=== PATIENT | female | born 1945 | race Caucasian/White ===

== ENCOUNTER → 2018-08-14 | Outpatient (CLI) | payer MEDICARE | LOC: GOCC 15:35 | PROVIDERS: ATTEND Internal Medicine | DX: A04.72 Enterocolitis due to Clostridium difficile, not specified as recurrent (principal) ==

== ENCOUNTER 2018-09-02 20:10 | Emergency (ER) | payer MEDICARE ==
--- NOTE | 2018-09-02 20:49 | ED.PDOC ---
History of Present Illness - General Chief Complaint: Respiratory Problem Stated Complaint: low oxygen sats per intermediate Time Seen by Provider: 09/02/18 20:46 Source: patient Exam Limitations: no limitations - History of Present Illness Initial Comments: SHE COMES FROM THE NH WITH LOW O2 SATS. SHE HAS COPD. Timing/Duration: 1 hour Severity: mild Possible Cause: frequent episodes Improving Factors: nothing Worsening Factors: nothing Associated Symptoms: denies symptoms Respiratory Risk Factors: no cause identified Allergies/Adverse Reactions: Allergies NO KNOWN ALLERGY Allergy (Verified 09/02/18 20:35) Review of Systems - Review of Systems Constitutional: States: no symptoms reported EENTM: States: no symptoms reported Respiratory: States: short of breath Cardiology: States: no symptoms reported Gastrointestinal/Abdominal: States: no symptoms reported Genitourinary: States: no symptoms reported Musculoskeletal: States: no symptoms reported Skin: States: no symptoms reported Neurological: States: no symptoms reported Endocrine: States: no symptoms reported Hematologic/Lymphatic: States: no symptoms reported Past Medical History (General) - Patient Medical History Hx Seizures: No Hx Stroke: No Hx Dementia: No Hx Asthma: No Hx of COPD: Yes Hx Cardiac Disorders: Yes - Tachycardia Hx Congestive Heart Failure: No Hx Pacemaker: No Hx Hypertension: No Hx Thyroid Disease: No Hx Diabetes: No Hx Gastroesophageal Reflux: Yes Hx Renal Disease: No Hx of HIV: No Hx MRSA: No Surgical History: noncontributory - Activities of Daily Living [facility]/Assisted Living (if applicable):: [place] [facility] Family Medical History - Family History Mother Family History: Unknown Physical Exam - Physical Exam General Appearance: Alert, Well Developed, Well Groomed, Well Hydrated, Well Nourished Eyes, Ears, Nose, Throat Exam: PERRL/EOMI, normal ENT inspection Neck: non-tender, supple Respiratory: chest non-tender, lungs clear, no respiratory distress, no accessory muscle use Cardiovascular/Chest: normal peripheral pulses, regular rate, rhythm, no edema, no gallop, no JVD Peripheral Pulses: radial,right: 2+, radial,left: 2+ Gastrointestinal/Abdominal: normal bowel sounds, non tender, no organomegaly Extremity: normal range of motion, non-tender Neurologic: no motor/sensory deficits Progress - Progress Progress: 09/02/18 22:05 Laboratory Tests 09/02/18 09/02/18 21:09 21:09 WBC 6.4 RBC 3.60 L Hgb 11.0 L Hct 35.6 L MCV 99.0 MCH 30.5 MCHC 30.8 L RDW 15.0 H Plt Count 201 MPV 7.8 Absolute Neuts (auto) 4.80 Absolute Lymphs (auto) 0.90 L Absolute Monos (auto) 0.40 Absolute Eos (auto) 0.20 Absolute Basos (auto) 0.00 Neutrophils % 75.4 Lymphocytes % 14.0 L Monocytes % 7.0 Eosinophils % 3.1 Basophils % 0.5 Sodium 142 Potassium 4.6 Chloride 89 L Carbon Dioxide 49 H Anion Gap 8.6 L BUN 13 Creatinine < 0.40 L BUN/Creatinine Ratio 32.0 H Random Glucose 111 H Serum Osmolality 283.9 Calcium 9.8 Total Bilirubin 0.5 AST 20 ALT < 8 L Alkaline Phosphatase 83 Serum Total Protein 7.1 Albumin 4.1 Globulin 3.0 Albumin/Globulin Ratio 1.4 - Results/Orders Results/Orders: CXR IS REPORTED: COPD CHANGES THE PATIENT USES OXYGEN AND HER SATS HERE ARE 94-95% AT 2 LTS [facility] DC Departure - Departure Clinical Impression: COPD (chronic obstructive pulmonary disease) Qualifiers: COPD type: unspecified COPD Qualified Code(s): J44.9 - Chronic obstructive pulmonary disease, unspecified Time of Disposition: 22:06 Disposition: Discharge to Home or Self Care Condition: Good Departure Forms: ED Discharge - Pt. Copy, Patient Portal Self Enrollment Instructions: Chronic Obstructive Pulmonary Disease (COPD), Including Emphysema Diet: resume usual diet
--- NOTE | 2018-09-02 21:10 | RAD ---
EXAM DESCRIPTION: Chest,1 View CLINICAL HISTORY: 73 years Female, SOB Comparison: None FINDINGS: Single AP view of the chest Cardiomediastinal silhouette is within normal limits. No focal lung consolidation. Increased bronchovascular markings bilaterally, lung hyperinflation and flattening hemidiaphragms. No pleural effusion. No pneumothorax. No acute osseous finding. IMPRESSION: Lung findings suggesting underlying COPD. Electronically signed by: Patricia Maki MD 09/02/2018 9:09 PM HEALTH SERVICE COORDINATOR
[2018-09-02 21:47] VITALS: TEMP 98
[2018-09-02] MEDS ORDERED: LIDOCAINE 2 % GEL 5 ML TUBE TOP ONE (22:37)
[2018-09-02 23:59] VITALS: O2SAT 98
[2018-09-03] VITALS: BP 126/72
== END 2018-09-02 23:35 | disposition home or self-care (01) ==
LOC: ER 20:10
DX: J44.9 Chronic obstructive pulmonary disease, unspecified (principal); K21.9 Gastro-esophageal reflux disease without esophagitis

== ENCOUNTER 2018-10-10 10:36 | Inpatient (IN) | payer MEDICARE, MEDICAID ==
[2018-10-10] MEDS ORDERED: IPRATROPIUM/ALBUTEROL 3 ML VIAL NEB ONE (10:52)
[2018-10-10] MEDS ORDERED: IBUPROFEN 200 MG TAB PO ONE (10:53)
--- NOTE | 2018-10-10 11:13 | RAD ---
EXAM DESCRIPTION: Chest,1 View CLINICAL HISTORY: 73 years Female, difficulty breathing, RR in the 40's COMPARISON: September 02, 2018. FINDINGS: Cardiomediastinal silhouette appears within normal limits, considering patient rotation to the right. The lungs appear somewhat hyperinflated but free of acute disease and not significantly changed compared to the previous examination, considering slight technical differences. A small vague nodular density in the left lateral upper lung field is probably artifactual. No obvious pneumothorax identified on this upright portable film. Possible old fracture in the left lower rib cage. IMPRESSION: No radiographic evidence of acute cardiopulmonary disease. Findings consistent with COPD. Electronically signed by: Martin Lyon MD 10/10/2018 11:11 AM [facility]
[2018-10-10] MEDS ORDERED: methylPREDNISolone SODIUM SUC 125 MG/2 ML VIAL IV ONE (11:34)
[2018-10-10] MEDS ORDERED: SODIUM CHLORIDE 0.9% 1000ML 1,000 ML IVS ONE (11:35)
[2018-10-10] MEDS ORDERED: cefTRIAXone SODIUM 1 GM in SODIUM CHL 0.9% 50ML MIN-BAG+ 50 ML IVPB ONE (11:35)
[2018-10-10] MEDS ORDERED: AZITHROMYCIN IV 500 MG in SODIUM CHLORIDE 0.9% 250ML 250 ML IVPB ONE (11:35)
[2018-10-10] MEDS ORDERED: cefTRIAXone SODIUM 1 GM VIAL ONE (11:49)
[2018-10-10] MEDS ORDERED: SODIUM CHL 0.9% 50ML MIN-BAG+ 50 ML IVPB ONE (11:50)
--- NOTE | 2018-10-10 11:54 | ED.PDOC ---
History of Present Illness - General Chief Complaint: Respiratory Problem Stated Complaint: Difficulty breathing Time Seen by Provider: 10/10/18 10:39 Source: patient Exam Limitations: no limitations - History of Present Illness Initial Comments: the patient is a 73-year-old female presenting to the emergency room by EMS. The patient was brought from [facility]. The patient was brought up on her daughter's request. The daughter is a nurse. The patient has been less interactive and slightly more obtunded than normal. The patient does have long-standing Parkinson's disease and takes medications for that. Additionally she has very advanced end-stage lung disease. She does normally wear oxygen at 2-3 L. She also does normally wear BiPAP 3 or 4 hours a night. She is a chronic CO2 retainer and her CO2 levels are normally in the 60s. She has a history of multiple frequent lung infections in the past. The patient is requiring about 3-1/2 L of oxygen currently. She has tachypnea with respiratory rate in the 40s. The patient is drowsy but arousable and interactive. The patient is very thin and cachectic. [facility] the [facility]. Temperature is 100 here.the patient has recently had a viral upper respiratory tract infection. Timing/Duration: 24 hours Severity: moderate Improving Factors: nothing Worsening Factors: nothing Associated Symptoms: malaise, shortness of breath Allergies/Adverse Reactions: Allergies NO KNOWN ALLERGY Allergy (Verified 10/10/18 10:55) Home Medications: Ambulatory Orders Albuterol Inhaler [Ventolin Hfa Inhaler] 2 puff INH Q4H PRN 10/10/18 Aspirin [Aspirin Regimen Low Dose/] 81 mg PO DAILY 10/10/18 B-Complex Vitamins [Vitamin B-Complex] 1 tab PO DAILY 10/10/18 Budesonide Nebs [Pulmicort Respules] 0.25 mg INH BID 10/10/18 Carbidopa-Levodopa [Rytary 36.25-145 mg] 3 cap PO BID 10/10/18 Cholecalciferol [Vitamin D-3] 5,000 unit PO DAILY 10/10/18 Ipratropium Almira 0.02 % NEB Q4H 10/10/18 Levalbuterol HCl [Xopenex] 1.25 mg NEB Q4H 10/10/18 Meclizine HCl [Meclizine 25] 25 mg PO TID PRN 10/10/18 Megestrol Acetate 80 mg PO DAILY 10/10/18 Omeprazole Magnesium [Prilosec Otc] 20 mg PO DAILY PRN 10/10/18 Polyethylene Glycol 3350 [Miralax] 17 gm PO DAILY 10/10/18 Ropinirole Hydrochloride [Ropinirole HCl] 0.5 mg PO BID 10/10/18 Rotigotine [Neupro] 8 mg TD DAILY 10/10/18 Sertraline HCl [Zoloft] 25 mg PO .EVENING 10/10/18 Simethicone 80 mg PO QID 10/10/18 Tramadol HCl 50 mg PO Q8H PRN 10/10/18 Trihexyphenidyl HCl 2 mg PO DAILY 10/10/18 Umeclidinium-Vilanterol [Anoro Ellipta 62.5-25 Mcg/INH] 1 aer INH DAILY 10/10/18 Review of Systems - Review of Systems Constitutional: States: malaise, weakness - generalized EENTM: States: nose congestion Respiratory: States: short of breath Cardiology: States: no symptoms reported Gastrointestinal/Abdominal: States: no symptoms reported Genitourinary: States: no symptoms reported Musculoskeletal: States: no symptoms reported Skin: States: no symptoms reported Neurological: States: other - mildly obtunded Endocrine: States: no symptoms reported All other Systems: No Change from Baseline Past Medical History (General) - Patient Medical History Hx Seizures: No Hx Stroke: No Hx Dementia: No Hx Asthma: No Hx of COPD: Yes Hx Cardiac Disorders: Yes - Tachycardia Hx Congestive Heart Failure: No Hx Pacemaker: No Hx Hypertension: No Hx Thyroid Disease: No Hx Diabetes: No Hx Gastroesophageal Reflux: Yes Hx Renal Disease: No Hx of HIV: No Hx MRSA: No - Vaccination History Hx Influenza Vaccination: No Hx Pneumococcal Vaccination: No - Social History Hx Alcohol Use: No - Activities of Daily Living [facility] (if applicable):: [facility] Family Medical History - Family History Mother Family History: Unknown Living Status: Physical Exam - Physical Exam General Appearance: Emaciated, Frail, Other - drowsy Eye Exam: bilateral normal Ears, Nose, Throat: hearing grossly normal, normal pharynx Neck: non-tender, supple Respiratory: other - the patient is to get back and does have dry rales at the bases. Is likely chronic. No wheezes but poor air movement. She does have significant accessory muscle use. Cardiovascular/Chest: normal peripheral pulses, regular rate, rhythm, no edema Peripheral Pulses: radial,right: 2+, radial,left: 2+, dorsalis pedis,right: 2+, dorsalis pedis,left: 2+ Gastrointestinal/Abdominal: non tender, soft Rectal Exam: deferred Back Exam: no CVA tenderness, no vertebral tenderness Extremity: normal range of motion, non-tender, normal inspection, no pedal edema, normal capillary refill Neurologic: track grinder II-XII nml as tested, no motor/sensory deficits, other - the patient is drowsy. Skin Exam: normal color Comments: Vital Signs - 24 hr 10/10/18 10/10/18 10/10/18 10:40 11:05 11:15 Temperature 100.0 F H 100.0 F H Pulse Rate 90 90 Pulse Rate [ 98 H 94 H Right Radial] Respiratory 46 H 32 H 32 H Rate Blood Pressure 132/56 103/54 [Right Arm] O2 Sat by Pulse 65 L 84 L 90 L Oximetry Progress - Progress Progress: 10/10/18 11:56 the patient's 73-year-old female with Parkinson's and severe end-stage lung disease presented secondary to tachypnea and a mildly obtunded state. The patient is retaining significant carbon dioxide. The patient is being placed on BiPAP. She'll be treated as a COPD exacerbation otherwise. Blood culture has been obtained. She has received breathing treatments and a steroid dose. She has also received a small fluid bolus and a dose of Rocephin and azithromycin. The patient will be placed as an inpatient to make sure that she improves. she may benefit from a slightly reduced dose of her Parkinson's medications due to sedative effects in the very near future at least. - Results/Orders Results/Orders: 10/10/18 10:52 Telemetry .CONTINUOUS 10/10/18 10:57 INFLUENZA A & B BY PCR Stat 10/10/18 11:10 BLOOD CULTURE Stat 10/10/18 11:33 URINE CULTURE W/COLONY COUNT Stat 10/10/18 11:35 Azithromycin IV [Zithromax IV] 500 mg Sodium Chloride 0.9% 250Ml [NS 250ml] 250 ml IVPB ONCE Sodium Chloride 0.9% 1000ML [Ns 1000 ml] 1,000 ml IVS ONCE cefTRIAXone SODIUM [Rocephin] 1 gm Sodium Chl 0.9% 50Ml Min-Bag+ [NS 50ml MINI-BAG+] 50 ml IVPB ONCE Laboratory Results - last 24 hr 10/10/18 10/10/18 10/10/18 10:52 10:52 11:06 WBC 8.1 RBC 3.92 L Hgb 11.8 L Hct 38.3 MCV 97.5 MCH 30.1 MCHC 30.9 L RDW 13.5 Plt Count 289 MPV 7.7 Absolute Neuts (auto) 5.90 Absolute Lymphs (auto) 1.30 Absolute Monos (auto) 0.50 Absolute Eos (auto) 0.30 Absolute Basos (auto) 0.10 Neutrophils % 73.5 Lymphocytes % 16.2 L Monocytes % 5.8 Eosinophils % 3.8 Basophils % 0.7 pCO2 87 H* pO2 88 HCO3 52.9 ABG pH 7.400 ABG O2 Saturation 96.8 ABG Base Excess 23.5 ABG Deoxyhemoglobin 3.1 Oxyhemoglobin % 95.0 Carboxyhemoglobin % 0.6 Methemoglobin % Sat 1.3 Calc Total Hemoglobin 11.3 L Sodium 142 Potassium 3.9 Chloride 87 L Carbon Dioxide 51 H* Anion Gap 7.9 L BUN 12 Creatinine < 0.40 L BUN/Creatinine Ratio 30.0 H Random Glucose 145 H Serum Osmolality 285.5 Lactic Acid Calcium 9.9 Total Bilirubin 0.5 AST 22 ALT < 8 L Alkaline Phosphatase 71 Creatine Kinase 19 L CK-MB (CK-2) 1.6 CK-MB (CK-2) % Not Reportable Troponin I < 0.02 B-Natriuretic Peptide 36.7 Serum Total Protein 6.4 Albumin 3.3 Globulin 3.1 Albumin/Globulin Ratio 1.1 Urine Color Urine Appearance Urine pH Ur Specific Conley Urine Protein Urine Glucose (UA) Urine Ketones Urine Blood Urine Nitrite Urine Bilirubin Urine Urobilinogen Ur Leukocyte Esterase Urine RBC Urine WBC Ur Epithelial Cells Amorphous Sediment Urine Bacteria 10/10/18 10/10/18 11:10 11:33 WBC RBC Hgb Hct MCV MCH MCHC RDW Plt Count MPV Absolute Neuts (auto) Absolute Lymphs (auto) Absolute Monos (auto) Absolute Eos (auto) Absolute Basos (auto) Neutrophils % Lymphocytes % Monocytes % Eosinophils % Basophils % pCO2 pO2 HCO3 ABG pH ABG O2 Saturation ABG Base Excess ABG Deoxyhemoglobin Oxyhemoglobin % Carboxyhemoglobin % Methemoglobin % Sat Calc Total Hemoglobin Sodium Potassium Chloride Carbon Dioxide Anion Gap BUN Creatinine BUN/Creatinine Ratio Random Glucose Serum Osmolality Lactic Acid 1.0 Calcium Total Bilirubin AST ALT Alkaline Phosphatase Creatine Kinase CK-MB (CK-2) CK-MB (CK-2) % Troponin I B-Natriuretic Peptide Serum Total Protein Albumin Globulin Albumin/Globulin Ratio Urine Color Straw Urine Appearance Cloudy Urine pH 7.0 Ur Specific Conley 1.015 Urine Protein Negative Urine Glucose (UA) Negative Urine Ketones Negative Urine Blood Negative Urine Nitrite Negative Urine Bilirubin Negative Urine Urobilinogen 0.2 Ur Leukocyte Esterase Small H Urine RBC 0 Urine WBC 1-3 Ur Epithelial Cells 0 Amorphous Sediment 1+ Urine Bacteria Rare x-ray shows no definite new infiltrates but severe chronic changes of COPD. Departure - Departure Clinical Impression: Encephalopathy, COPD with exacerbation Disposition: Admit Patient Condition: Poor Home Medications: Ambulatory Orders Albuterol Inhaler [Ventolin Hfa Inhaler] 2 puff INH Q4H PRN 10/10/18 Aspirin [Aspirin Regimen Low Dose/] 81 mg PO DAILY 10/10/18 B-Complex Vitamins [Vitamin B-Complex] 1 tab PO DAILY 10/10/18 Budesonide Nebs [Pulmicort Respules] 0.25 mg INH BID 10/10/18 Carbidopa-Levodopa [Rytary 36.25-145 mg] 3 cap PO BID 10/10/18 Cholecalciferol [Vitamin D-3] 5,000 unit PO DAILY 10/10/18 Ipratropium Almira 0.02 % NEB Q4H 10/10/18 Levalbuterol HCl [Xopenex] 1.25 mg NEB Q4H 10/10/18 Meclizine HCl [Meclizine 25] 25 mg PO TID PRN 10/10/18 Megestrol Acetate 80 mg PO DAILY 10/10/18 Omeprazole Magnesium [Prilosec Otc] 20 mg PO DAILY PRN 10/10/18 Polyethylene Glycol 3350 [Miralax] 17 gm PO DAILY 10/10/18 Ropinirole Hydrochloride [Ropinirole HCl] 0.5 mg PO BID 10/10/18 Rotigotine [Neupro] 8 mg TD DAILY 10/10/18 Sertraline HCl [Zoloft] 25 mg PO .EVENING 10/10/18 Simethicone 80 mg PO QID 10/10/18 Tramadol HCl 50 mg PO Q8H PRN 10/10/18 Trihexyphenidyl HCl 2 mg PO DAILY 10/10/18 Umeclidinium-Vilanterol [Anoro Ellipta 62.5-25 Mcg/INH] 1 aer INH DAILY 10/10/18 Decision To Admit - Decistion To Admit Decision to Admit Reason: Medical Nature Decision to Admit Date: 10/10/18 Decision to Admit Time: 11:59
[2018-10-10] MEDS ORDERED: SODIUM CHLORIDE 0.9% 250ML 250 ML ONE (12:35)
[2018-10-10] MEDS ORDERED: AZITHROMYCIN IV 500 MG VIAL IVPB ONE (12:35)
--- NOTE | 2018-10-10 12:45 | HP ---
SUPERVISING PHYSICIAN: Emerson Patrick M.D. CHIEF COMPLAINT: Difficulty breathing. HISTORY OF PRESENT ILLNESS: Ms. Lang is a 73 year-old female that resides at [facility]. She presented to the Emergency Room today by EMS at her daughter's request, who is a nurse, that noted that the patient had been less interactive and slightly more obtunded than previous days. The patient has a long history of Parkinson's disease and end stage chronic obstructive pulmonary disease, and utilizes oxygen, normally 2 to 3 liters as well as wears BiPAP throughout the day and night. The daughter notes that she had some family friends that had an upper respiratory infection in the past week and came to visit the patient. The patient is a known CO2 retainer, normally with CO2 around 50 or 60. In the E. R., she was significant with respirations in the 40s and very drowsy but arousable and interactive. She was running a low-grade temperature. Initial vital signs showed that she was satting 65% on room air and on BiPAP after breathing treatments went up to 90% with 3 liters. She was febrile, temperature 100.0. Laboratory studies showed she had a normal white count and a normal differential with hemoglobin 11.8, hematocrit 38.3. Blood gas analysis showed a respiratory acidosis with elevated CO2 levels with bicarb showing to be at 52, pO2 of 88 and pCO2 of 87 on 3 liters nasal cannula at rest satting 96%. Base excess was 23.5. Chemistries showed that her CO2 was 51 with sodium 142, potassium 3.9, BUN 12, creatinine was less than 0.4. Liver functions all showed to be within normal limits. Troponin was less than 0.02. Lactic acid was 1.0. Urinalysis was showing to be within normal limits except for a small amount of leukocyte esterase. Blood cultures were completed as well as urine culture and she was started on antibiotics to include Rocephin and azithromycin given her advanced stage COPD. She was started on BiPAP in the E. R. to assist in off-loading some of the CO2 and help with stabilizing the patient's respiratory efforts. She is now going to be admitted to the Medical/Surgical floor for further evaluation and treatment. PAST MEDICAL HISTORY: Limited due to the patient being a poor historian. 1. Parkinson's disease. 2. Chronic obstructive pulmonary disease O2 dependent. PAST SURGICAL HISTORY: No listed surgeries. HOME MEDICATIONS: Please see updated list of medications from the residential that have been verified. FAMILY HISTORY: Noncontributory. SOCIAL HISTORY: The patient resides at [facility]. She has been there since July and she was previously living with her family. She is . She was a heavy smoker but quit many years previously and does not drink or use illicit drugs. REVIEW OF SYSTEMS: CONSTITUTIONAL: Positive for general malaise, weakness and unintentional weight loss of 20 pounds in the last 4 months. HEENT: Positive for nasal congestion but negative for any sore throat, ear aches. RESPIRATORY: As noted in History of Present Illness, positive for shortness of breath and hypercapnia and being O2 dependent on BiPAP. CARDIOVASCULAR: Negative for ay chest pains, palpitations, syncopal episodes or peripheral edema. GASTROINTESTINAL: Negative for abdominal pains, diarrhea, constipation, nausea or vomiting. NEUROLOGIC: Positive for worsening alertness but negative for any seizures, ataxia or other neurological deficits. PHYSICAL EXAMINATION: VITAL SIGNS: In the E. R., showed a temperature of 100.0, pulse 98, blood pressure 132/56, respirations 46 and labored effort using accessory muscles, satting 65% initially on room air. After breathing treatments and initiation of BiPAP, she was showing to be satting 90% up to 96% with better controlled respirations in the high 20s. GENERAL: On admission to the Medical/Surgical floor, the patient is very frail, emaciated and quite drowsy, but will respond to questions. HEENT: Tympanic membranes are clear bilaterally. Oropharynx was pink and moist without any lesions. NECK: Supple, non-tender with full range of motion. No jugular venous distention. CHEST: Lung sounds were fairly clear but diminished throughout with very poor air exchange, but no wheezing with some notable accessory muscle usage. CARDIOVASCULAR: Regular rate and rhythm without appreciable murmurs, gallops, or rubs. ABDOMEN: Soft, non-tender. Positive bowel sounds. EXTREMITIES: Without any clubbing, cyanosis or edema. NEUROLOGIC: She is alert and oriented times three. Cranial nerves II-XII are grossly intact. LABORATORY STUDIES: White count was normal at 8,100, hemoglobin 8, hematocrit 38.3, platelet count 289,000. Differential showed to be without a left shift. Blood gas analysis showed a compensated respiratory acidosis with a pH of 7.4, bicarb 52, pO2 was 88, pCO2 was 87 with saturations 96% on 3 liters nasal cannula. Chemistries showed CO2 levels at 51. Sodium and potassium were normal. BUN 12, creatinine less than 0.4. Liver functions all showed to be within normal limits. Lactic acid was normal at 1.0. Troponin is less than 0.02. MICROBIOLOGY: Blood cultures are pending. Urine culture is pending. Urinalysis just showed a small amount of leukocyte esterase with rare bacteria on microscopic exam. RADIOLOGY: Chest x-ray per radiology interpretation showed no radiographic evidence of acute cardiopulmonary disease but findings consistent with COPD. ASSESSMENT: 1. Acute exacerbation of chronic obstructive pulmonary disease, O2 dependent with hypercapnia. 2. Encephalopathy secondary to hypercapnia with the patient being dependent on BiPAP. 3. History of Parkinson's disease on multiple medications probably resulting in some mild sedation and exacerbating the hypercapnia. PLAN: The patient is going to be admitted to the Medical/Surgical floor for ongoing treatment of exacerbation of COPD. She will be started on BiPAP in efforts to decrease her CO2 to her normal limits which should be around 40 to 50. She is a known chronic CO2 retainer. Will start on antibiotics to include Rocephin and azithromycin given her underlying co-morbidities and advanced COPD and recent exposure to upper respiratory infection. Will start her on some IV fluids. She will be on aggressive pulmonary hygiene as well as corticosteroid regimen. She initially was given 60 mg in the E. R. and this will be followed- up with 40 mg every 6 hours times 3 doses. Will reevaluate in the morning with chest x-ray and repeat laboratory studies. Anticipate length of stay to be at least 2 to 3 days. Until she can transition to outpatient management will continue to monitor and treat as needed. #[id number] [facility]
[2018-10-10] MEDS: IV SET AND CAP CHANGE INJ INJ SCH (14:18)
[2018-10-10] MEDS: IPRATROPIUM/ALBUTEROL 3 ML VIAL NEB SCH ×2 (16:25→20:52)
[2018-10-10] MEDS: ACETAMINOPHEN 325 MG TAB PO PRN (18:15)
[2018-10-10] MEDS: methylPREDNISolone SODIUM SUC 40 MG/ML VIAL IV SCH ×2 (18:24→23:29)
[2018-10-10] MEDS: SODIUM CHLORIDE 0.9% (FLUSH) 10 ML SYG IV PRN (23:24)
[2018-10-10] MEDS: ALBUTEROL SULFATE 2.5 MG/3 ML VIAL NEB PRN (23:48)
[2018-10-11] MEDS: ALBUTEROL SULFATE 2.5 MG/3 ML VIAL NEB PRN (04:45)
[2018-10-11] MEDS ORDERED: POLYETHYLENE GLYCOL 3350 17 GM PCKT ONE (05:33)
[2018-10-11] MEDS ORDERED: SODIUM CHL 0.9% 50ML MIN-BAG+ 50 ML IVPB ONE (05:33)
[2018-10-11] MEDS ORDERED: cefTRIAXone SODIUM 1 GM VIAL ONE (05:34)
[2018-10-11] MEDS: PANTOPRAZOLE SODIUM IV 40 MG VIAL IV SCH (06:09)
[2018-10-11] MEDS: SODIUM CHLORIDE 0.9% (FLUSH) 10 ML SYG IV PRN ×2 (06:09→07:07)
[2018-10-11] MEDS: methylPREDNISolone SODIUM SUC 40 MG/ML VIAL IV SCH (06:09)
[2018-10-11] MEDS: IPRATROPIUM/ALBUTEROL 3 ML VIAL NEB SCH ×4 (07:53→19:30)
[2018-10-11] MEDS: BUDESONIDE NEBS 0.25 MG/2 ML INH INH SCH ×2 (07:53→19:30)
--- NOTE | 2018-10-11 08:04 | RAD ---
PROCEDURE: XR CHEST 1 VIEW HISTORY: copd exacerbation COMPARISON: 10/10/2018 TECHNIQUE: Single projection of the chest was done. FINDINGS: There are underlying changes of COPD . There are no discrete airspace infiltrates, pneumothoraces or pleural effusions. The pulmonary vascularity is normal. The cardiomediastinal silhouette is stable. IMPRESSION: There is no acute pleural-parenchymal process seen in the imaged lung miles. Changes of COPD Electronically signed by: Alex Hutton MD 10/11/2018 8:02 AM [facility] Workstation: [id number]
[2018-10-11] MEDS: ASPIRIN (ENTERIC COATED) 81 MG TAB PO SCH (10:05)
[2018-10-11] MEDS: SIMETHICONE 80 MG TAB PO SCH ×4 (10:05→21:34)
[2018-10-11] MEDS: MEGESTROL ACETATE 40 MG TAB PO SCH (10:05)
[2018-10-11] MEDS: AMANTADINE HCL 100 MG CAP PO SCH (10:06)
[2018-10-11] MEDS: ENOXAPARIN SODIUM 30 MG/0.3 ML SYG SUBCU SCH (10:06)
[2018-10-11] MEDS: POLYETHYLENE GLYCOL 3350 17 GM PCKT PO SCH (10:06)
[2018-10-11] MEDS: cefTRIAXone SODIUM 1 GM in SODIUM CHL 0.9% 50ML MIN-BAG+ 50 ML IVPB SCH (10:06)
[2018-10-11] MEDS ORDERED: MAGNESIUM HYDROXIDE 30 ML UD PO PRN (13:14)
[2018-10-11] MEDS ORDERED: MAGNESIUM HYDROXIDE 30 ML UD ONE (13:18)
[2018-10-11] MEDS: AZITHROMYCIN IV 500 MG in SODIUM CHLORIDE 0.9% 250ML 250 ML IVPB SCH (14:01)
[2018-10-11] MEDS: TRIHEXYPHENIDYL HCL 2 MG PO SCH (14:47)
[2018-10-11] MEDS: ROTIGOTINE 8 MG TD SCH (14:49)
[2018-10-11] MEDS: CARBIDOPA LEVODOPA PO SCH ×2 (14:50→21:33)
[2018-10-11] MEDS ORDERED: SODIUM CHLORIDE 0.9% 250ML 250 ML ONE (14:59)
[2018-10-11] MEDS ORDERED: AZITHROMYCIN IV 500 MG VIAL IVPB ONE (14:59)
[2018-10-11] MEDS: NON-FORMULARY MEDICATION 1 EA MIS (Umeclidinium-Vilanterol [Anoro Ellipta 62.5-25 Mcg/Inh] INH SCH (16:08)
--- NOTE | 2018-10-11 20:24 | PN ---
DATE: 10/11/18 SUPERVISING PHYSICIAN: Emerson Patrick M.D. SUBJECTIVE: The patient seems to be showing some clinical improvement, although very slow. She continues to tolerate her BiPAP but has been alert enough and actually become anxious with the mask that we had to use a little Ativan to keep her sats up with the BiPAP. I noticed this morning that she was able to take her mask off and take her pills, and held sats for a little bit but then she certainly desatted. She has been afebrile. Her home medications have been restarted in regards to her Parkinson's treatment. OBJECTIVE: VITAL SIGNS: Temperature 98.6, pulse 93, blood pressure 110/69, respirations 20, satting 92% on nasal cannula at 6 liters and 100% on BiPAP. BiPAP settings are shown to be 11/6 with FiO2 of 35% with the patient showing tidal volumes of about 280 to 300. Weight 35.1 kg. I's and O's do show a positive balance of 1210 with 1860 in, 650 out. GENERAL: The patient appears to be very comfortable in no distress on BiPAP. She will arouse to physical and verbal stimulus, but obviously continues to be quite drowsy. CHEST: Lung sounds are still diminished throughout but sound a little bit more prominent than admission. There is no wheezing noted nor are there any rhonchi or rales. HEART: Regular rate and rhythm. ABDOMEN: Soft, non-tender. Positive bowel sounds. EXTREMITIES: Without any clubbing, cyanosis or edema. NEUROLOGIC: She is drowsy but arousable and alert to time, place and events. LABORATORY: White count is showing to be 6,300, hemoglobin 10.3, hematocrit 33.1, platelet count 249,000. Differential shows a left shift today. Electrolytes are showing normal potassium and sodium. Carbon dioxide is down to 47 compared to admission of 51. BUN 15, creatinine less than 0.04. Serum osmolality is at 290, calcium 9.6. MICROBIOLOGY: Urine culture is pending. Blood culture is showing to be negative at 24 hours. RADIOLOGY: Repeat chest x-ray single view chest this morning per radiology interpretation showed no acute pleural or parenchymal processes noted in the imaged lung miles. ASSESSMENT: 1. Acute exacerbation of chronic obstructive pulmonary disease, O2 dependent with hypercapnia requiring BiPAP. 2. Encephalopathy secondary to hypercapnia with the patient being on BiPAP with some improvement. 3. History of Parkinson's disease on multiple medications probably resulting in some more of her sedation and exacerbation of hypercapnia. PLAN: The patient will continue with current plan of care at this point with BiPAP as tolerated and attempts to titrate her FiO2 to hopefully be able to get her maybe to a high flow nasal cannula. She continues on azithromycin and Rocephin, and aggressive pulmonary hygiene. She does have Lazar in place. Anticipate hopefully being able to remove this in the next 24 hours. Will try not to use any Ativan. If we have to certainly to keep her on BiPAP as she needs to, but will attempt to not utilize any sedating medications if possible. She has been restarted on her Parkinson's medications. Those certainly will add some sedative type effects and will closely monitor this. Will go ahead and repeat CBC and BMP in the morning as well as a chest x-ray. Again, will attempt to titrate the patient down on FiO2 and off onto a nasal cannula if possible today. Anticipate probably will not be ready to go home for at least another 2 to 3 days given her slow clinical response to treatment. Until we can transition to outpatient management, will continue to monitor and treat as needed. #[id number] [facility]
[2018-10-11] MEDS: SERTRALINE HCL 50 MG TAB PO SCH (21:35)
[2018-10-12] MEDS ORDERED: SODIUM CHLORIDE 0.9% 500ML 500 ML IVS ONE (03:27)
[2018-10-12] MEDS ORDERED: ALUM & MAG HYDROX-SIMETHICONE 30 ML UD PO PRN (03:27)
[2018-10-12] MEDS ORDERED: ALUMINUM & MAGNESIUM HYDROXIDE 30 ML UD ONE (03:30)
[2018-10-12] MEDS: PANTOPRAZOLE SODIUM IV 40 MG VIAL IV SCH (06:29)
[2018-10-12] MEDS ORDERED: SODIUM CHL 0.9% 50ML MIN-BAG+ 50 ML IVPB ONE (08:14)
[2018-10-12] MEDS ORDERED: cefTRIAXone SODIUM 1 GM VIAL ONE (08:15)
[2018-10-12] MEDS: POLYETHYLENE GLYCOL 3350 17 GM PCKT PO SCH ×2 (08:17→13:32)
[2018-10-12] MEDS: MEGESTROL ACETATE 40 MG TAB PO SCH (08:18)
[2018-10-12] MEDS: AMANTADINE HCL 100 MG CAP PO SCH (08:18)
[2018-10-12] MEDS: ASPIRIN (ENTERIC COATED) 81 MG TAB PO SCH (08:18)
[2018-10-12] MEDS: CARBIDOPA LEVODOPA PO SCH ×2 (08:18→20:57)
[2018-10-12] MEDS: SIMETHICONE 80 MG TAB PO SCH ×4 (08:19→20:58)
[2018-10-12] MEDS: TRIHEXYPHENIDYL HCL 2 MG PO SCH (08:19)
[2018-10-12] MEDS: ROTIGOTINE 8 MG TD SCH (08:20)
[2018-10-12] MEDS: cefTRIAXone SODIUM 1 GM in SODIUM CHL 0.9% 50ML MIN-BAG+ 50 ML IVPB SCH (08:23)
[2018-10-12] MEDS: ENOXAPARIN SODIUM 30 MG/0.3 ML SYG SUBCU SCH (08:29)
[2018-10-12] MEDS: NON-FORMULARY MEDICATION 1 EA MIS (Umeclidinium-Vilanterol [Anoro Ellipta 62.5-25 Mcg/Inh] INH SCH (09:07)
[2018-10-12] MEDS: BUDESONIDE NEBS 0.25 MG/2 ML INH INH SCH ×2 (09:08→20:23)
[2018-10-12] MEDS: IPRATROPIUM/ALBUTEROL 3 ML VIAL NEB SCH ×4 (09:08→20:23)
[2018-10-12] MEDS: methylPREDNISolone SODIUM SUC 40 MG/ML VIAL IV SCH ×2 (09:21→21:00)
[2018-10-12] MEDS: BIFIDOBACTERIUM INFANTIS 4 MG CAP PO SCH ×2 (10:42→20:58)
[2018-10-12] MEDS ORDERED: SODIUM CHLORIDE 0.9% 250ML 250 ML ONE (13:16)
[2018-10-12] MEDS ORDERED: AZITHROMYCIN IV 500 MG VIAL IVPB ONE (13:17)
[2018-10-12] MEDS: AZITHROMYCIN IV 500 MG in SODIUM CHLORIDE 0.9% 250ML 250 ML IVPB SCH (13:32)
--- NOTE | 2018-10-12 14:06 | PN ---
DATE: 10/12/18 SUPERVISING PHYSICIAN: Emerson Patrick M.D. SUBJECTIVE: The patient is sitting up in her hospital bed, she is eating her lunch. She says she is still quite short of breath with any activity but she is improving since admission. She also complains of constipation and she cannot when she had her last bowel movement and would like something for that. Otherwise ,she denies chest pain, nausea or vomiting. OBJECTIVE: VITAL SIGNS: Temperature 98, heart rate 92, blood pressure 126/70, respirations 20, her 02 saturation is 99% of four liters of high-slow RESPIRATORY: Diminished throughout all lung miles. She does have a few scattered rhonchi but they are very faint. HEART: Regular rate and rhythm. At times she is thought to be tachycardia. ABDOMEN: Soft, non-tender, nondistended. Positive bowel sounds. NEUROLOGIC: She is slightly lethargic but is alert to person and place. LABORATORY: Sodium 143, potassium 4.4, chloride 91, carbon dioxide 49, baseline carbon dioxide is around 50. BUN 14, creatinine less than 0.40. Preliminary blood cultures show no growth after 48 hours. Urine culture is pending. All other labs and films have been reviewed via the EMR. ASSESSMENT: 1. Acute exacerbation of chronic obstructive pulmonary disease, O2 dependent with hypercapnia requiring BiPAP. 2. Encephalopathy secondary to hypercapnia with the patient being on BiPAP with some improvement. 3. History of Parkinson's disease on multiple medications probably resulting in some more of her sedation and exacerbation of hypercapnia. PLAN: We will continue present supportive care. I will hold on any labs or films as we will watch her clinically. I will order her some Miralax for her constipation. I have also ordered bladder training to start tomorrow but as she still gets quite short of breath with any exertion we will hold on bladder training tomorrow and hopefully can discontinue her Lazar catheter at that time. I encouraged good pulmonary hygiene. I have consulted physical therapy and will continue to monitor closely and follow as needed. Dr. Patrick is the collaborating physician available for consultation. #[id number] [facility]
[2018-10-12] MEDS: SERTRALINE HCL 50 MG TAB PO SCH (20:58)
[2018-10-12] MEDS: SODIUM CHLORIDE 0.9% (FLUSH) 10 ML SYG IV PRN ×2 (21:01→23:42)
[2018-10-13] MEDS: ACETAMINOPHEN 325 MG TAB PO PRN ×2 (02:26→22:21)
[2018-10-13] MEDS: PANTOPRAZOLE SODIUM IV 40 MG VIAL IV SCH (06:22)
[2018-10-13] MEDS: SODIUM CHLORIDE 0.9% (FLUSH) 10 ML SYG IV PRN ×3 (06:22→20:43)
[2018-10-13] MEDS ORDERED: SODIUM CHL 0.9% 50ML MIN-BAG+ 50 ML IVPB ONE (07:51)
[2018-10-13] MEDS ORDERED: cefTRIAXone SODIUM 1 GM VIAL ONE (07:52)
[2018-10-13] MEDS: BUDESONIDE NEBS 0.25 MG/2 ML INH INH SCH ×2 (08:45→19:48)
[2018-10-13] MEDS: IPRATROPIUM/ALBUTEROL 3 ML VIAL NEB SCH ×4 (08:45→19:47)
[2018-10-13] MEDS: NON-FORMULARY MEDICATION 1 EA MIS (Umeclidinium-Vilanterol [Anoro Ellipta 62.5-25 Mcg/Inh] INH SCH (09:05)
[2018-10-13] MEDS: CARBIDOPA LEVODOPA PO SCH ×2 (09:07→20:35)
[2018-10-13] MEDS: AMANTADINE HCL 100 MG CAP PO SCH (09:07)
[2018-10-13] MEDS: MEGESTROL ACETATE 40 MG TAB PO SCH (09:07)
[2018-10-13] MEDS: TRIHEXYPHENIDYL HCL 2 MG PO SCH (09:07)
[2018-10-13] MEDS: BIFIDOBACTERIUM INFANTIS 4 MG CAP PO SCH ×2 (09:07→20:36)
[2018-10-13] MEDS: SIMETHICONE 80 MG TAB PO SCH ×4 (09:08→20:36)
[2018-10-13] MEDS: POLYETHYLENE GLYCOL 3350 17 GM PCKT PO SCH ×2 (09:08→09:12)
[2018-10-13] MEDS: cefTRIAXone SODIUM 1 GM in SODIUM CHL 0.9% 50ML MIN-BAG+ 50 ML IVPB SCH (09:08)
[2018-10-13] MEDS: ASPIRIN (ENTERIC COATED) 81 MG TAB PO SCH (09:08)
[2018-10-13] MEDS: ENOXAPARIN SODIUM 30 MG/0.3 ML SYG SUBCU SCH (09:11)
[2018-10-13] MEDS: ROTIGOTINE 8 MG TD SCH (09:12)
[2018-10-13] MEDS ORDERED: AZITHROMYCIN IV 500 MG VIAL IVPB ONE (12:45)
[2018-10-13] MEDS ORDERED: SODIUM CHLORIDE 0.9% 250ML 250 ML ONE (12:45)
--- NOTE | 2018-10-13 12:46 | PN ---
DATE: 10/13/18 SUPERVISING PHYSICIAN: Emerson Patrick M.D. SUBJECTIVE: The patient is sleeping in her hospital bed. She has her BiPAP on. She denies any chest pain, nausea or vomiting or constipation. She is hungry and would like some ice cream and some apple juice. I told her I would get the nurses to bring that to her. She is very weak and short of breath and continues to use high flow at some point with the BiPAP most of the time due to her poor respiratory effort. OBJECTIVE: VITAL SIGNS: Temperature 97.6, heart rate 92, blood pressure 120/69, respirations 20, her 02 saturation is 96% on the BiPAP machine, reported to drop to the low 80s when she is exerting herself or trying to get to the side of the bed. RESPIRATORY: Diminished breath sounds throughout. She can only speak in short phrases and she does get tachypneic with speaking and any exertion. HEART: Regular rate and rhythm. NEUROLOGIC: She is lethargic but awakens easily and answers simple questions appropriately.. LABORATORY: Preliminary blood cultures showed no growth after 3 days. All other labs and films have been reviewed via the EMR. ASSESSMENT: 1. Acute exacerbation of chronic obstructive pulmonary disease, O2 dependent with hypercapnia requiring BiPAP. 2. Encephalopathy secondary to hypercapnia with the patient being on BiPAP with some improvement. 3. History of Parkinson's disease on multiple medications probably resulting in some more of her sedation and exacerbation of hypercapnia. PLAN: We will continue present supportive care. We will continue to titrate off the high flow and BiPAP. Hopefully we can get her to C-PAP mode on her machine. I have ordered lab for in the morning but it is very slow progress for this patient as her oxygenation and ventilation is so labile, it may be difficult to get her to a less invasive ventilation. We will need to followup with Mark Sarabia and her pulmonary at some point to help us with her discharge planning. I am not sure that she can tolerate being off of her machine for very long. It would also be helpful to get a code status change on her to DNR as her prognosis is very poor. Otherwise, we will continue to monitor closely and follow as needed. Dr. Patrick is the collaborating physician available for consultation. #[id number] [facility]
[2018-10-13] MEDS: IV SET AND CAP CHANGE INJ INJ SCH (12:51)
[2018-10-13] MEDS: AZITHROMYCIN IV 500 MG in SODIUM CHLORIDE 0.9% 250ML 250 ML IVPB SCH (13:21)
[2018-10-13] MEDS: SERTRALINE HCL 50 MG TAB PO SCH (20:36)
[2018-10-14] MEDS: SODIUM CHLORIDE 0.9% (FLUSH) 10 ML SYG IV PRN ×2 (06:19→08:33)
[2018-10-14] MEDS: PANTOPRAZOLE SODIUM IV 40 MG VIAL IV SCH (06:20)
[2018-10-14] MEDS ORDERED: SODIUM CHL 0.9% 50ML MIN-BAG+ 50 ML IVPB ONE (07:44)
[2018-10-14] MEDS ORDERED: cefTRIAXone SODIUM 1 GM VIAL ONE (07:45)
[2018-10-14] MEDS: cefTRIAXone SODIUM 1 GM in SODIUM CHL 0.9% 50ML MIN-BAG+ 50 ML IVPB SCH (08:33)
[2018-10-14] MEDS: ASPIRIN (ENTERIC COATED) 81 MG TAB PO SCH (08:39)
[2018-10-14] MEDS: AMANTADINE HCL 100 MG CAP PO SCH (08:39)
[2018-10-14] MEDS: BIFIDOBACTERIUM INFANTIS 4 MG CAP PO SCH (08:39)
[2018-10-14] MEDS: POLYETHYLENE GLYCOL 3350 17 GM PCKT PO SCH ×2 (08:39→08:40)
[2018-10-14] MEDS: MEGESTROL ACETATE 40 MG TAB PO SCH (08:39)
[2018-10-14] MEDS: SIMETHICONE 80 MG TAB PO SCH ×2 (08:39→13:12)
[2018-10-14] MEDS: ENOXAPARIN SODIUM 30 MG/0.3 ML SYG SUBCU SCH (08:39)
[2018-10-14] MEDS: IPRATROPIUM/ALBUTEROL 3 ML VIAL NEB SCH ×2 (08:48→11:59)
[2018-10-14] MEDS: BUDESONIDE NEBS 0.25 MG/2 ML INH INH SCH (08:48)
[2018-10-14] MEDS: NON-FORMULARY MEDICATION 1 EA MIS (Umeclidinium-Vilanterol [Anoro Ellipta 62.5-25 Mcg/Inh] INH SCH (08:48)
[2018-10-14] MEDS: TRIHEXYPHENIDYL HCL 2 MG PO SCH (08:49)
[2018-10-14] MEDS: CARBIDOPA LEVODOPA PO SCH (08:49)
[2018-10-14] MEDS ORDERED: MAGNESIUM HYDROXIDE 30 ML UD PO ONE (11:22)
[2018-10-14] MEDS: ROTIGOTINE 8 MG TD SCH (11:29)
[2018-10-14] MEDS ORDERED: AZITHROMYCIN 250 MG TAB PO ONE (11:38)
[2018-10-14] MEDS ORDERED: SODIUM PHOS/BIPHOS ENEMA ADULT 133 ML BTTL PR ONE (13:02)
[2018-10-14] MEDS: AZITHROMYCIN IV 500 MG in SODIUM CHLORIDE 0.9% 250ML 250 ML IVPB SCH (13:06)
[2018-10-14 13:58] VITALS: BP 110/60; TEMP 98.9; O2SAT 97
--- NOTE | 2018-10-22 08:28 | DS ---
SUPERVISING PHYSICIAN: Enrique House MD DISCHARGE DIAGNOSIS: 1. Acute exacerbation of chronic obstructive pulmonary disease, O2 dependent with hypercapnia requiring BiPAP. 2. Encephalopathy secondary to hypercapnia with the patient being on BiPAP with some improvement. 3. History of Parkinson's disease on multiple medications probably resulting in some more of her sedation and exacerbation of hypercapnia. HISTORY OF PRESENT ILLNESS: Ms. Lang is a 73-year-old female that resides at [facility]. She presented to the Emergency Room today by EMS at her daughter's request, who is a nurse, that noted that the patient had been less interactive and slightly more obtunded than previous days. The patient has a long history of Parkinson's disease and end stage chronic obstructive pulmonary disease, and utilizes oxygen, normally 2 to 3 liters as well as wears BiPAP throughout the day and night. The daughter notes that she had some family friends that had an upper respiratory infection in the past week and came to visit the patient. The patient is a known CO2 retainer, normally with CO2 around 50 or 60. In the E. R., she was significant with respirations in the 40s and very drowsy but arousable and interactive. She was running a low-grade temperature. Initial vital signs showed that she was satting 65% on room air and on BiPAP after breathing treatments went up to 90% with 3 liters. She was febrile, temperature 100.0. Laboratory studies showed she had a normal white count and a normal differential with hemoglobin 11.8, hematocrit 38.3. Blood gas analysis showed a respiratory acidosis with elevated CO2 levels with bicarb showing to be at 52, pO2 of 88 and pCO2 of 87 on 3 liters nasal cannula at rest satting 96%. Base excess was 23.5. Chemistries showed that her CO2 was 51 with sodium 142, potassium 3.9, BUN 12, creatinine was less than 0.4. Liver functions all showed to be within normal limits. Troponin was less than 0.02. Lactic acid was 1.0. Urinalysis was showing to be within normal limits except for a small amount of leukocyte esterase. Blood cultures were completed as well as urine culture and she was started on antibiotics to include Rocephin and azithromycin given her advanced stage COPD. She was started on BiPAP in the E. R. to assist in off-loading some of the CO2 and help with stabilizing the patient's respiratory efforts. She is now going to be admitted to the Medical/Surgical floor for further evaluation and treatment. HOSPITAL COURSE: The patient was started on BiPAP in an effort to decrease her CO2. Her baseline CO2 is about 50 and she is a known CO2 retainer. She was started on Rocephin and azithromycin as well as some IV fluids, good pulmonary hygiene as well as a steroid taper. Her chest x-ray the following day showed no acute pleural or parenchymal processes. She uses BiPAP at the care home and her FIO2 was titrated down. She was attempted to be put on high-flow nasal cannula, but she does not tolerate it, so she was continued on BiPAP with nasal cannula oxygen administration. A Lazar catheter was placed and her home medications were resumed. Her labs and films stabilized. She did have some problems with some constipation, so she was started on MiraLAX. Initially, we started bladder training, but because she became so short of breath, we held off on discontinuing the Lazar catheter. Physical therapy worked with her. At this point, she has reached her baseline and will be discharged back to the care home. LABORATORY: WBCs remained stable throughout her stay, starting at 8,100 and at on discharge were 7,700. Hemoglobin and hematocrit are stable at 10.4 and 33.7. Her carbon dioxide was 51 today on date of discharge, but her baseline CO2 is 49 to 50. Her chloride was slightly low at 88, but the remainder of her electrolytes were within normal limits. Her blood cultures showed no growth after 5 days. She will be discharged to [facility]. DISCHARGE PLAN: The patient will be discharged to [facility]. She is in poor condition. She is to resume her previous diet and increase her activity as tolerated. She is to followup with Dr. Dial within the next one to two weeks. She was started on cefdinir and she completed her azithromycin in the hospital. She was also given Align as well as some Milk of Magnesia due to her constipation. She did have a bowel movement prior to discharge. She is to followup with Dr. Dial or return to the hospital for any further problems or complications. DISCHARGE MEDICATIONS: 1. Xopenex. 2. Simethicone. 3. Vitamin D. 4. Trihexyphenidyl. 5. Tramadol. 6. Rytary. 7. Ropinirole. 8. Omeprazole. 9. Neupro. 10. MiraLAX. 11. Megace. 12. Meclizine. 13. Ipratropium bromide. 14. Pulmicort. 15. Vitamin B complex. 16. Aspirin. 17. Anoro. 18. Sertraline. 19. Limbitrol. 20. Align. 21. Cefdinir. 22. Milk of Magnesia. #[id number] [facility]
== END 2018-10-14 14:10 | DRG 191 ==
LOC: ER 10:36 → MS 12:43
PROVIDERS: ADMIT Nurse Practitioner Family; ATTEND Nurse Practitioner Acute Care
DX: J44.1 Chronic obstructive pulmonary disease with (acute) exacerbation (principal); G93.49 Other encephalopathy; E87.2 Acidosis; G20 Parkinson's disease; K21.9 Gastro-esophageal reflux disease without esophagitis; K59.00 Constipation, unspecified; Z99.81 Dependence on supplemental oxygen; Z87.891 Personal history of nicotine dependence; Z79.82 Long term (current) use of aspirin

== ENCOUNTER 2018-10-18 00:35 | Observation (INO) | payer MEDICARE, MEDICAID ==
[2018-10-18] MEDS ORDERED: ASPIRIN (CHEWABLE) 81 MG TAB PO ONE (00:50)
[2018-10-18] MEDS ORDERED: ASPIRIN TABLET 325 MG TAB ONE (00:56)
[2018-10-18] MEDS ORDERED: ASPIRIN (CHEWABLE) 81 MG TAB ONE (00:58)
--- NOTE | 2018-10-18 01:00 | ED.PDOC ---
History of Present Illness - General Chief Complaint: Chest Pain/RI Stated Complaint: chest pain Time Seen by Provider: 10/18/18 00:41 Source: patient, family Exam Limitations: no limitations - History of Present Illness Initial Comments: Patient presents with chest pain that started just [employer]. It is mid-sternal, constant, non-radiating, and stabbing in nature. No previous episodes nor associated symptoms. She has never had an AMI or CVA. She does have Parkinson's and stays at [facility] for that. She has COPD and is on chronic oxygen by [place] and CPAP at night. No other complaints. Timing/Duration: 1/2 hour Severity: moderate Improving Factors: nothing Worsening Factors: nothing Associated Symptoms: denies symptoms Allergies/Adverse Reactions: Allergies Iodine Allergy (Verified 10/10/18 16:25) Shellfish Allergy Allergy (Verified 10/10/18 16:25) Home Medications: Ambulatory Orders Albuterol Inhaler [Ventolin Hfa Inhaler] 2 puff INH Q4H PRN 10/10/18 Amantadine HCl [Symmetrel] 100 mg PO DAILY 10/10/18 Aspirin [Aspirin Regimen Low Dose/] 81 mg PO DAILY 10/10/18 B-Complex Vitamins [Vitamin B-Complex] 1 tab PO DAILY 10/10/18 Budesonide Nebs [Pulmicort Respules] 0.25 mg INH BID 10/10/18 Carbidopa-Levodopa [Rytary 36.25-145 mg] 3 cap PO BID 10/10/18 Cholecalciferol [Vitamin D-3] 5,000 unit PO DAILY 10/10/18 Ipratropium [place] 0.02 % NEB Q4H 10/10/18 Levalbuterol HCl [Xopenex] 1.25 mg NEB Q4H 10/10/18 Meclizine HCl [Meclizine 25] 25 mg PO TID PRN 10/10/18 Megestrol Acetate 80 mg PO DAILY 10/10/18 Omeprazole Magnesium [Prilosec Otc] 20 mg PO DAILY PRN 10/10/18 Polyethylene Glycol 3350 [Miralax] 17 gm PO DAILY 10/10/18 Ropinirole Hydrochloride [Ropinirole HCl] 0.5 mg PO BID 10/10/18 Rotigotine [Neupro] 8 mg TD DAILY 10/10/18 Sertraline HCl [Zoloft] 25 mg PO .EVENING 10/10/18 Simethicone 80 mg PO QID PRN 10/10/18 Tramadol HCl 50 mg PO Q8H PRN 10/10/18 Trihexyphenidyl HCl 2 mg PO DAILY 10/10/18 Umeclidinium-Vilanterol [Anoro Ellipta 62.5-25 Mcg/INH] 1 aer INH DAILY 10/10/18 Cefdinir 300 mg PO BID #20 capsule 10/14/18 Magnesium Hydroxide [Milk Of Magnesia] 30 ml PO DAILY PRN #30 ud 10/14/18 Bifidobacterium Infantis [Align] 4 mg PO BID 10/18/18 Review of Systems - Review of Systems Constitutional: States: no symptoms reported EENTM: States: no symptoms reported Respiratory: States: no symptoms reported Cardiology: States: see HPI Gastrointestinal/Abdominal: States: no symptoms reported Genitourinary: States: no symptoms reported Musculoskeletal: States: no symptoms reported Skin: States: no symptoms reported Neurological: States: no symptoms reported Endocrine: States: no symptoms reported Hematologic/Lymphatic: States: no symptoms reported Past Medical History (General) - Patient Medical History Hx Seizures: No Hx Stroke: No Hx Dementia: No Hx Asthma: No Hx of COPD: Yes Hx Cardiac Disorders: Yes - Tachycardia Hx Congestive Heart Failure: No Hx Pacemaker: No Hx Hypertension: No Hx Thyroid Disease: No Hx Diabetes: No Hx Gastroesophageal Reflux: Yes Hx Renal Disease: No Hx of HIV: No Hx MRSA: No - Vaccination History Hx Influenza Vaccination: No Hx Pneumococcal Vaccination: No - Social History Hx Alcohol Use: No Hx Substance Use: No Hx Physical Abuse: No Hx Emotional Abuse: No Family Medical History - Family History Mother Family History: Unknown Living Status: Physical Exam - Physical Exam General Appearance: Alert Eye Exam: bilateral normal Ears, Nose, Throat: normal ENT inspection Neck: non-tender, full range of motion, supple Respiratory: lungs clear, other - distant breath sounds Cardiovascular/Chest: normal peripheral pulses, regular rate, rhythm, no edema Gastrointestinal/Abdominal: normal bowel sounds, non tender, soft Back Exam: normal inspection, no CVA tenderness Extremity: non-tender, normal inspection, no pedal edema Neurologic: alert, normal mood/affect, oriented x 3, other - tremor from Parkinson's Skin Exam: normal color Lymphatic: no adenopathy Progress - Progress Progress: 10/18/18 05:13 Laboratory Tests 10/18/18 10/18/18 10/18/18 00:45 00:45 00:45 WBC 6.6 RBC 4.10 L Hgb 12.6 Hct 40.3 MCV 98.4 MCH 30.7 MCHC 31.3 L RDW 14.2 Plt Count 233 MPV 7.8 Absolute Neuts (auto) 4.70 Absolute Lymphs (auto) 1.20 Absolute Monos (auto) 0.50 Absolute Eos (auto) 0.20 Absolute Basos (auto) 0.00 Neutrophils % 70.6 Lymphocytes % 18.1 L Monocytes % 7.0 Eosinophils % 3.6 Basophils % 0.7 PT 9.0 INR 0.90 PTT (SP) 21.3 L Sodium 147 H Potassium 4.7 Chloride 93 L Carbon Dioxide 51 H* Anion Gap 7.7 L BUN 13 Creatinine < 0.40 L BUN/Creatinine Ratio 32.0 H Random Glucose 113 H Serum Osmolality 293.3 Calcium 10.0 Total Bilirubin 0.5 AST 17 ALT < 8 L Alkaline Phosphatase 70 Creatine Kinase 20 L CK-MB (CK-2) 2.0 CK-MB (CK-2) % Not Reportable Troponin I < 0.02 B-Natriuretic Peptide 19.8 Serum Total Protein 7.3 Albumin 4.0 Globulin 3.3 Albumin/Globulin Ratio 1.2 Group A Strep Rapid 10/18/18 03:22 WBC RBC Hgb Hct MCV MCH MCHC RDW Plt Count MPV Absolute Neuts (auto) Absolute Lymphs (auto) Absolute Monos (auto) Absolute Eos (auto) Absolute Basos (auto) Neutrophils % Lymphocytes % Monocytes % Eosinophils % Basophils % PT INR PTT (SP) Sodium Potassium Chloride Carbon Dioxide Anion Gap BUN Creatinine BUN/Creatinine Ratio Random Glucose Serum Osmolality Calcium Total Bilirubin AST ALT Alkaline Phosphatase Creatine Kinase CK-MB (CK-2) CK-MB (CK-2) % Troponin I B-Natriuretic Peptide Serum Total Protein Albumin Globulin Albumin/Globulin Ratio Group A Strep Rapid Negative Carbon dioxide 51. ABG showed pCO2 of 101. CXR showed possible left pleural effusion. wbc wnl. Patient was given solumedrol 125 mg IV x one and Azithromycin 500 mg IV x one for presumed COPD exacerbation. However, after receiving the solumderol, her temperature still josh to 101.7. There is no obvious source for this at this time. Influenza and strep were negative. UA taken and sent. Patient admitted to the floor for COPD exacerbation and fever without a known cause. Departure - Departure Clinical Impression: COPD exacerbation, Fever Disposition: Admit Patient Condition: Fair Departure Forms: ED Discharge - Pt. Copy, Patient Portal Self Enrollment Instructions: DI for Chest Pain Diet: resume usual diet Activity: increase activity as tolerated Home Medications: Ambulatory Orders Albuterol Inhaler [Ventolin Hfa Inhaler] 2 puff INH Q4H PRN 10/10/18 Amantadine HCl [Symmetrel] 100 mg PO DAILY 10/10/18 Aspirin [Aspirin Regimen Low Dose/] 81 mg PO DAILY 10/10/18 B-Complex Vitamins [Vitamin B-Complex] 1 tab PO DAILY 10/10/18 Budesonide Nebs [Pulmicort Respules] 0.25 mg INH BID 10/10/18 Carbidopa-Levodopa [Rytary 36.25-145 mg] 3 cap PO BID 10/10/18 Cholecalciferol [Vitamin D-3] 5,000 unit PO DAILY 10/10/18 Ipratropium [place] 0.02 % NEB Q4H 10/10/18 Levalbuterol HCl [Xopenex] 1.25 mg NEB Q4H 10/10/18 Meclizine HCl [Meclizine 25] 25 mg PO TID PRN 10/10/18 Megestrol Acetate 80 mg PO DAILY 10/10/18 Omeprazole Magnesium [Prilosec Otc] 20 mg PO DAILY PRN 10/10/18 Polyethylene Glycol 3350 [Miralax] 17 gm PO DAILY 10/10/18 Ropinirole Hydrochloride [Ropinirole HCl] 0.5 mg PO BID 10/10/18 Rotigotine [Neupro] 8 mg TD DAILY 10/10/18 Sertraline HCl [Zoloft] 25 mg PO .EVENING 10/10/18 Simethicone 80 mg PO QID PRN 10/10/18 Tramadol HCl 50 mg PO Q8H PRN 10/10/18 Trihexyphenidyl HCl 2 mg PO DAILY 10/10/18 Umeclidinium-Vilanterol [Anoro Ellipta 62.5-25 Mcg/INH] 1 aer INH DAILY 10/10/18 Cefdinir 300 mg PO BID #20 capsule 10/14/18 Magnesium Hydroxide [Milk Of Magnesia] 30 ml PO DAILY PRN #30 ud 10/14/18 Bifidobacterium Infantis [Align] 4 mg PO BID 10/18/18
[2018-10-18] MEDS ORDERED: methylPREDNISolone SODIUM SUC 125 MG/2 ML VIAL IV ONE (01:30)
[2018-10-18] MEDS ORDERED: IPRATROPIUM/ALBUTEROL 3 ML VIAL NEB ONE ×2 (01:30→01:31)
--- NOTE | 2018-10-18 01:37 | RAD ---
CHEST 10/18/2018 at 0128 hours. CLINICAL HISTORY: Chest pain COMPARISON: Chest 10/11/2018 TECHNIQUE: AP portable Chest. FINDINGS: Normal heart size. Minimal aortic atherosclerosis. Lungs are hyperinflated. Coarse lung markings are chronic. Normal pulmonary vascularity. No airspace infiltrates. Possible trace left pleural fluid. Mild dextroconvex thoracic curve that is partially positional. Generalized decreased bone mineralization. Unremarkable soft tissues. IMPRESSION: 1. COPD. 2. Possible trace left pleural fluid. Electronically signed by: Lorraine Bell DO 10/18/2018 1:36 AM [facility]
[2018-10-18] MEDS: NON-FORMULARY MEDICATION 1 EA MIS (Umeclidinium-Vilanterol [Anoro Ellipta 62.5-25 Mcg/Inh] INH SCH (04:14)
[2018-10-18] MEDS ORDERED: AZITHROMYCIN IV 500 MG in SODIUM CHLORIDE 0.9% 250ML 250 ML IVPB ONE (04:51)
[2018-10-18] MEDS ORDERED: SODIUM CHLORIDE 0.9% 250ML 250 ML ONE (04:54)
[2018-10-18] MEDS ORDERED: AZITHROMYCIN IV 500 MG VIAL IVPB ONE (04:54)
--- NOTE | 2018-10-18 05:51 | HP ---
SUPERVISING PHYSICIAN: Enrique House M.D. CHIEF COMPLAINT: Chest pain and fever. HISTORY OF PRESENT ILLNESS: Ms. Lang is a 73 year-old female patient who resides at [facility]. She presented to the E. R. early this morning after some chest pains just prior to arrival that she noted was midsternal, constant, nonradiating and stabbing in nature. She has had a previous episode as noted on the last admission which was associated with some indigestion. She has no history of past acute myocardial infarction but does have a history of Parkinson's. She also has an extensive history of chronic obstructive pulmonary disease and advanced emphysema requiring chronic O2 and CPAP support. She noted that the pain had started just prior to arrival and it was gain more epigastric region apparently. The pain resolved prior to E. R. admission without intervention. She noted that it had been similar to the one she had had when she was in the hospital in the last week. She had been admitted to [facility] on 10/10/18 and discharged on 10/14/18 for exacerbation of COPD. In the E. R., she had a workup for acute myocardial infarction rule out. Initial laboratory studies were fairly unremarkable. White count was normal at 6,600. Differential showed to be within normal limits. Coagulation studies showed normal PT and PTT. Blood gas analysis did show a pH of 7.31 but her pCO2 was 103, pO2 was 83, bicarb 49, satting 96% on nasal cannula at rest. She is chronically hypercapnic due to her advanced emphysema but was not lethargic on admission. Chemistries did show an elevated sodium at 147 with again carbon dioxide of 51 which is around her baseline levels. Liver functions all showed normal limits. Initial troponin on admission was less than 0.02 and repeated at 5 hours was less than 0.02. EKG just showed normal sinus rhythm. No ST wave changes. No ST elevation. Chest x-ray in the E. R. showed COPD with possible left trace pleural fluid. She was going to be discharged after a second set of enzymes around 5:00, however she did develop a fever prior to discharge up to 101.7. Initial temperature on admission was 98.4. Her vital signs were showing to be stable. Pulse was 88, blood pressure 15/54 and she was satting 96% on nasal cannula at rest on 2 liters. Respirations were around 24 but nonlabored. At that point she had a nasal swab by PCR for influenza A and B which were both negative. She also had a rapid Group A Strep that was negative. Urinalysis showed a moderate amount of blood and microscopic revealed 5 to 10 RBCs with 3 to 5 WBCs, no epithelials, 1+ bacteria and 1+ amorphous material, small amount of mucous. She was given an aspirin and breathing treatment, and started on azithromycin with concerns for possible developing left lower lobe pneumonia with a history of COPD exacerbation and at that point was also given 125 mg of Solu-Medrol. Dr. Dillard requested the patient be admitted with concerns for possible developing pneumonia given her advanced COPD and recent hospitalization as well as further rule out of acute myocardial infarction. She was placed in Observation in stable condition. PAST MEDICAL HISTORY: 1. Recent admission for COPD exacerbation on 10/10/18. 2. Parkinson's disease. 3. Chronic emphysema with advanced central lobular emphysema, chronic O2 dependence. PAST SURGICAL HISTORY: No surgeries listed. HOME MEDICATIONS: 1. Anoro Ellipta 62.5-25 mcg, 1 inhaled daily. 2. Trihexyphenidyl 2 mg daily. 3. Tramadol 50 mg every 8 hours as needed for pain. 4. Simethicone 80 mg q.i.d. as needed. 5. Zoloft 25 mg daily. 6. Neupro 8 mg daily. 7. Ropinirole 0.5 mg b.i.d. 8. MiraLAX 17 grams daily. 9. Prilosec 20 mg daily as needed. 10. Megace 81 mg daily. 11. Meclizine 25 mg t.i.d. as needed. 12. Milk of Magnesia 30 mg daily as needed. 13. Xopenex 1.25 mg every 4 hours. 14. Ipratropium 0.02% nebulized every 4 hours. 15. Vitamin D3 5,000 units daily. 16. Recent antibiotic coverage with Cefdinir after discharge 300 mg b.i.d. 17. Carbidopa Levodopa 36.25-145 mg 3 capsules b.i.d. 18. Pulmicort 0.25 mg inhaled b.i.d. 19. Align 4 mg b.i.d. 20. Vitamin B complex 1 tablet daily. 21. Aspirin 81 mg daily. 22. Amantadine 100 mg daily. 23. Ventolin inhaler 2 puffs inhaled every 4 hours as needed. ALLERGIES: IODINE AND SHELLFISH. FAMILY HISTORY: Noncontributory. SOCIAL HISTORY: The patient resides at [facility]. She has been there since July 2018 at which time before she was living with her family. She is . She was a heavy smoker but quit many years previously and does not currently smoke. She denies any alcohol or illicit drug use. REVIEW OF SYSTEMS: CONSTITUTIONAL: Negative for any general malaise, weakness. She has had some unintentional weight loss that was noted on previous admission of 20 pounds in the last 4 months since just prior to admission to the senior care. HEENT: Negative for any nasal congestion, sore throat, ear aches. RESPIRATORY: As noted in History of Present Illness, chronic COPD with advanced emphysema and chronic hypercapnia and O2 dependent as well as BiPAP. CARDIOVASCULAR: As noted in history of present illness. Positive for chest pains but negative for any palpitations, syncopal episodes or peripheral edema. GASTROINTESTINAL: Negative for abdominal pain, diarrhea, constipation, nausea or vomiting. NEUROLOGIC: Negative for seizures, ataxia or other neurological deficits. Negative for any syncopal episodes. PHYSICAL EXAMINATION: VITAL SIGNS: Temperature initially on admission to the E. . was 98.4 with pulse 91, blood pressure 118/64. She was showing some mild labored respirations at 30 with 99% O2 saturation on 2 liters nasal cannula at rest. After treatment initiation of some oxygen therapy she did show improvement in her respirations that normalized to 24, satting 95% on nasal cannula at 2 liters at rest. Just prior to discharge and admission to the Medical/Surgical floor, the patient did spike a fever of 101.7 with pulse 88, blood pressure 114/54. Admission weight 38.0 kg. GENERAL: The patient is showing to be not in any apparent acute distress. She is actually maintaining O2 saturations on nasal cannula at rest. She is very frail in appearance, emaciated. HEENT: Tympanic membranes are clear bilaterally. Oropharynx is pink and moist without any lesions. NECK: Supple, non-tender. Full range of motion. No jugular venous distention. CHEST: Lung sounds were clear but diminished towards the bases but no wheezing, rhonchi or rales noted. No accessory muscle usage either. CARDIOVASCULAR: Heart was regular rate and rhythm without appreciable murmurs, gallops, or rubs. ABDOMEN: Soft, non-tender. Positive bowel sounds. EXTREMITIES: Shows to be without any clubbing, cyanosis or edema. NEUROLOGIC: She is alert and oriented times three. Cranial nerves II-XII are grossly intact. Facial features were symmetrical. Extraocular movements are within normal limits. There is no notable nystagmus. LABORATORY: In the E.R., showed white count 6,600, hemoglobin 12.6, hematocrit 40.3, platelet count 233,000. Differential showed to be without a left shift. Coagulation studies showed PT of 9, PTT of 21.3. Blood gas analysis did show a respiratory acidosis initially with a pH of 7.31 and a pCO2 level of 103, pO2 was 83 and bicarb was 49.8 with saturation of 96% on 2 to 3 liters nasal cannula. Oxyhemoglobin was 93.9% with total hemoglobin noted to be 10.8. Chemistries on admission did show sodium 147, normal potassium at 4.7, CO2 was elevated at 51, BUN 13, creatinine less than 0.04, glucose 113, serum osmolality 293. Liver functions showed to be within normal limits. Initial troponin was less than 0.02, then 5 hours after admission was less than 0.02 again. Urinalysis showed just a moderate amount of blood with negative leukocyte esterase. Microscopic revealed 5 to 10 RBCs, 3 to 5 WBCs, 0 epithelials, 1+ amorphous and bacteria with small amount of mucous. Rapid Group A Strep was negative. Influenza by PCR for A and B was negative. Strep A culture is pending. RADIOLOGY: Chest x-ray in the E. R. per radiology interpretation showed COPD with possible trace left pleural fluid. Chest CT was pending at time of admission. EKG showed normal sinus rhythm without any acute ST or T wave changes compared to previous EKGs on last admission. ASSESSMENT: 1. Chest pain rule out for acute myocardial infarction with current workup showing negative troponin and negative EKG changes. 2. Fever, probably a viral etiology with no signs currently of pneumonia or exacerbation of COPD but CT of the chest is pending. Urine possibly a source of infection, but culture is pending. The patient from [facility] care facility, probably an influenza type illness with current influenza testing showing to be negative. 3. Electrolyte imbalance with hypernatremia probably due to some dehydration with also hypercapnia which is chronic. 4. Respiratory acidosis with a history of advanced COPD and emphysema with no current signs of exacerbation with the patient being O2 dependent and chronic dependency on BiPAP/CPAP. 5. Moderate dehydration probably contributing to the hypernatremia. 6. History of recent chronic obstructive pulmonary disease exacerbation, discharged 10/14/18 from [facility], but no current signs of exacerbation. 7. History of Parkinson's disease. PLAN: The patient is going to be placed in observation for cardiac rule out for acute myocardial infarction as well as further monitoring for any possible exacerbation of COPD. I will get a CT of her chest to further rule out any developing pneumonia. Given that she does have advanced emphysema, COPD and recent hospitalization, I will go ahead and start her on azithromycin and Rocephin as well as antivirals with Tamiflu. Will anticipate 1 to 2 days admission with possible discharge tomorrow. Will repeat cardiac enzymes as well as EKG and laboratory studies in the morning. I will go ahead and start her on some IV fluids to help with some mild dehydration. I suspect that her chest pain is more related to epigastric discomfort from chronic illness, COPD and recent administration of steroids, therefore will go ahead and start her on some Protonix for gastric prophylaxis. Until she can transition back to the senior care with outpatient management will continue to monitor and treat as needed. #[id number] [facility]
[2018-10-18] MEDS ORDERED: ALBUTEROL SULFATE 2.5 MG/3 ML VIAL NEB PRN (07:50)
[2018-10-18] MEDS ORDERED: ONDANSETRON INJ 4 MG/2 ML VIAL IV PRN (07:56)
[2018-10-18] MEDS ORDERED: SODIUM CHLORIDE 0.9% (FLUSH) 10 ML SYG IV PRN (07:56)
[2018-10-18] MEDS ORDERED: ACETAMINOPHEN 325 MG TAB PO PRN (07:56)
[2018-10-18] MEDS ORDERED: IV SET AND CAP CHANGE INJ INJ SCH (08:00)
[2018-10-18] MEDS ORDERED: IPRATROPIUM BROMIDE NEBS 0.5 MG/2.5 ML VIAL NEB SCH (08:00)
[2018-10-18] MEDS ORDERED: SODIUM CHL 0.9% 50ML MIN-BAG+ 50 ML IVPB ONE (08:39)
[2018-10-18] MEDS ORDERED: cefTRIAXone SODIUM 1 GM VIAL ONE (08:40)
[2018-10-18] MEDS: DEX 5% W/NACL 0.45% 1000ML 1,000 ML IVS PRN ×2 (08:47→23:46)
[2018-10-18] MEDS: cefTRIAXone SODIUM 1 GM in SODIUM CHL 0.9% 50ML MIN-BAG+ 50 ML IVPB SCH (08:47)
[2018-10-18] MEDS ORDERED: NON-FORMULARY MEDICATION 1 EA MIS (Umeclidinium-Vilanterol [Anoro Ellipta 62.5-25 Mcg/Inh] INH SCH (09:00)
[2018-10-18] MEDS: IPRATROPIUM/ALBUTEROL 3 ML VIAL NEB SCH ×4 (09:13→20:50)
[2018-10-18] MEDS: BUDESONIDE NEBS 0.25 MG/2 ML INH INH SCH ×2 (09:14→20:50)
[2018-10-18] MEDS: BIFIDOBACTERIUM INFANTIS 4 MG CAP PO SCH ×2 (09:52→21:22)
[2018-10-18] MEDS: MEGESTROL ACETATE 40 MG TAB PO SCH (09:52)
[2018-10-18] MEDS: AMANTADINE HCL 100 MG CAP PO SCH (09:52)
[2018-10-18] MEDS: ASPIRIN (ENTERIC COATED) 81 MG TAB PO SCH (09:52)
[2018-10-18] MEDS: POLYETHYLENE GLYCOL 3350 17 GM PCKT PO SCH (09:57)
[2018-10-18] MEDS: OSELTAMIVIR 75 MG CAP PO SCH ×2 (09:58→21:24)
--- NOTE | 2018-10-18 10:51 | CT ---
Procedure: CT CHEST WITHOUT IV CONTRAST Exam Date: 10/18/2018 7:42 AM HOUSEKEEPER/CUSTODIAN/LAUNDRY WORKER Ordering Provider: Cristhian Browne NP Clinical Indication: sob; copd Comparison: None Technique: Helically acquired axial images were obtained through the chest. Coronal and Sagittal reformats were obtained. This exam was performed according to our departmental dose-optimization program which includes automated exposure control, adjustment of the mA and/or kV according to patient size and/or use of iterative reconstruction technique. Findings: There is right basilar subsegmental atelectasis or scarring. Profound centrilobular emphysema is present. No pleural effusion or pneumothorax. The heart size is normal. No pericardial effusion. No pathologic adenopathy is present by size criteria. Remote, healed fracture deformities of the posterior right ribs. Partially imaged upper abdomen demonstrates no acute abnormality. Impression: Severe centrilobular emphysema. Electronically signed by: Tyler Munoz MD 10/18/2018 10:49 AM HOUSEKEEPER/CUSTODIAN/LAUNDRY WORKER
[2018-10-18] MEDS: CARBIDOPA LEVODOPA PO SCH ×2 (11:42→21:23)
[2018-10-18] MEDS: ROTIGOTINE 8 MG TD SCH (11:42)
[2018-10-18] MEDS: TRIHEXYPHENIDYL HCL 2 MG PO SCH (11:43)
[2018-10-18] MEDS: PANTOPRAZOLE SODIUM IV 40 MG VIAL IV SCH (15:06)
[2018-10-18] MEDS ORDERED: SERTRALINE HCL 50 MG TAB PO SCH (21:00)
[2018-10-18] MEDS ORDERED: ENOXAPARIN SODIUM 30 MG/0.3 ML SYG SUBCU SCH (21:00)
[2018-10-19] MEDS ORDERED: ALPRAZolam 0.5 MG TAB PO PRN (00:50)
[2018-10-19] MEDS: PANTOPRAZOLE SODIUM IV 40 MG VIAL IV SCH (06:15)
[2018-10-19] MEDS ORDERED: SODIUM CHL 0.9% 50ML MIN-BAG+ 50 ML IVPB ONE (07:26)
[2018-10-19] MEDS: IPRATROPIUM/ALBUTEROL 3 ML VIAL NEB SCH ×2 (07:26→11:41)
[2018-10-19] MEDS: NON-FORMULARY MEDICATION 1 EA MIS (Umeclidinium-Vilanterol [Anoro Ellipta 62.5-25 Mcg/Inh] INH SCH (07:26)
[2018-10-19] MEDS ORDERED: cefTRIAXone SODIUM 1 GM VIAL ONE (07:26)
[2018-10-19] MEDS: BUDESONIDE NEBS 0.25 MG/2 ML INH INH SCH (07:26)
[2018-10-19] MEDS: cefTRIAXone SODIUM 1 GM in SODIUM CHL 0.9% 50ML MIN-BAG+ 50 ML IVPB SCH (07:49)
[2018-10-19] MEDS: POLYETHYLENE GLYCOL 3350 17 GM PCKT PO SCH (08:11)
[2018-10-19] MEDS: MEGESTROL ACETATE 40 MG TAB PO SCH (08:11)
[2018-10-19] MEDS: OSELTAMIVIR 75 MG CAP PO SCH (08:11)
[2018-10-19] MEDS: AMANTADINE HCL 100 MG CAP PO SCH (08:12)
[2018-10-19] MEDS: BIFIDOBACTERIUM INFANTIS 4 MG CAP PO SCH (08:12)
[2018-10-19] MEDS: ASPIRIN (ENTERIC COATED) 81 MG TAB PO SCH (08:12)
[2018-10-19] MEDS: CARBIDOPA LEVODOPA PO SCH (08:14)
[2018-10-19] MEDS: TRIHEXYPHENIDYL HCL 2 MG PO SCH (08:15)
[2018-10-19] MEDS: ROTIGOTINE 8 MG TD SCH (08:15)
[2018-10-19 10:28] VITALS: BP 117/55; TEMP 98; O2SAT 100
[2018-10-19] MEDS ORDERED: OSELTAMIVIR 75 MG CAP PO ONE (13:10)
--- NOTE | 2018-10-26 08:46 | DS ---
SUPERVISING PHYSICIAN: Weston Spangler MD ADMISSION DIAGNOSIS: 1. Chest pain rule out for acute myocardial infarction with current workup showing negative troponin and negative EKG changes. 2. Fever, probably a viral etiology with no signs currently of pneumonia or exacerbation of chronic obstructive pulmonary disease but CT of the chest is pending. Urine possibly a source of infection, but culture is pending. The patient from long term care pharmacist care facility, probably an influenza type illness with current influenza testing showing to be negative. 3. Electrolyte imbalance with hypernatremia probably due to some dehydration with also hypercapnia which is chronic. 4. Respiratory acidosis with a history of advanced COPD and emphysema with no current signs of exacerbation with the patient being O2 dependent and chronic dependency on BiPAP/CPAP. 5. Moderate dehydration probably contributing to the hypernatremia. 6. History of recent chronic obstructive pulmonary disease exacerbation, discharged 10/14/18 from [facility], but no current signs of exacerbation. 7. History of Parkinson's disease. DISCHARGE DIAGNOSIS: 1. Chest pain without any evidence of acute myocardial infarction with troponins and EKGs being negative. 2. Fever, probably viral etiology with no signs of pneumonia or exacerbation of chronic obstructive pulmonary disease. 3. Electrolyte imbalance with hypernatremia due to dehydration, improved with fluids. 4. Respiratory acidosis with advanced chronic obstructive pulmonary disease and emphysema with no signs of exacerbation with the patient being chronically dependent on BiPAP and CPAP. 5. Moderate dehydration contributing to her hypernatremia. 6. History of Parkinson's disease. REASON FOR HOSPITALIZATION: Ms. Lang is a 73 year-old female patient who resides at [facility]. She presented to the E. R. early this morning after some chest pains just prior to arrival that she noted was midsternal, constant, nonradiating and stabbing in nature. She has had a previous episode as noted on the last admission which was associated with some indigestion. She has no history of past acute myocardial infarction but does have a history of Parkinson's. She also has an extensive history of chronic obstructive pulmonary disease and advanced emphysema requiring chronic O2 and CPAP support. She noted that the pain had started just prior to arrival and it was gain more epigastric region apparently. The pain resolved prior to E. R. admission without intervention. She noted that it had been similar to the one she had had when she was in the hospital in the last week. She had been admitted to [facility] on 10/10/18 and discharged on 10/14/18 for exacerbation of COPD. In the E. R., she had a workup for acute myocardial infarction rule out. Initial laboratory studies were fairly unremarkable. White count was normal at 6,600. Differential showed to be within normal limits. Coagulation studies showed normal PT and PTT. Blood gas analysis did show a pH of 7.31 but her pCO2 was 103, pO2 was 83, bicarb 49, satting 96% on nasal cannula at rest. She is chronically hypercapnic due to her advanced emphysema but was not lethargic on admission. Chemistries did show an elevated sodium at 147 with again carbon dioxide of 51 which is around her baseline levels. Liver functions all showed normal limits. Initial troponin on admission was less than 0.02 and repeated at 5 hours was less than 0.02. EKG just showed normal sinus rhythm. No ST wave changes. No ST elevation. Chest x-ray in the E. R. showed COPD with possible left trace pleural fluid. She was going to be discharged after a second set of enzymes around 5:00, however she did develop a fever prior to discharge up to 101.7. Initial temperature on admission was 98.4. Her vital signs were showing to be stable. Pulse was 88, blood pressure 15/54 and she was satting 96% on nasal cannula at rest on 2 liters. Respirations were around 24 but nonlabored. At that point she had a nasal swab by PCR for influenza A and B which were both negative. She also had a rapid Group A Strep that was negative. Urinalysis showed a moderate amount of blood and microscopic revealed 5 to 10 RBCs with 3 to 5 WBCs, no epithelials, 1+ bacteria and 1+ amorphous material, small amount of mucous. She was given an aspirin and breathing treatment, and started on azithromycin with concerns for possible developing left lower lobe pneumonia with a history of COPD exacerbation and at that point was also given 125 [address] of Solu-Medrol. [address] Dillard requested the patient be admitted with concerns for possible developing pneumonia given her advanced COPD and recent hospitalization as well as further rule out of acute myocardial infarction. She was placed in Observation in stable condition. LABORATORY: White count was normal at 6,600, hemoglobin 12.6, hematocrit 40.3, platelet count 233,000. Differential was without a left shift. Coagulation studies showed normal PT, PTT. Blood gas analysis did show a partially compensated respiratory acidosis with pH 7.31, pCO2 103, pO2 83, bicarb 49.8, O2 saturation 96% on nasal cannula. Chemistries on admission did show an elevated carbon dioxide of 51, sodium 147, BUN 13, creatinine less than 0.4. Liver functions were within normal limits. Three sets of troponins were less than 0.02, less than 0.02 and 0.01, respectively. On the morning of discharge, electrolytes were within normal limits. Carbon dioxide had gone down to 44, which was baseline for the patient. BUN 15, creatinine 0.44. Urinalysis showed a moderate amount of blood on microscopic revealing 5 to 10 RBCs, 3 to 5 epithelials, 1+ bacteria, no epithelials, small amount of mucus. Group A strep, rapid screen, was negative. MICROBIOLOGY: Group A strep culture negative. No beta hemolytic strep was isolated on strep screen cultures. RADIOLOGY: Chest x-ray on admission per radiologic interpretation showed chronic obstructive pulmonary disease with possible trace left pleural fluid. She did have a chest CT which showed severe central lobe emphysema, no other acute changes. EKGs on admission showed sinus rhythm without any ST or T-wave changes. HOSPITAL COURSE: Ms. Lang was admitted for chest pain rule out and was found to be without any evidence of on laboratory studies of acute myocardial infarction. She was doing well. In fact, she was doing better than when she was admitted the first time prior to discharge and it was felt she could continue with outpatient management. PLAN: Ms. Lang was discharged on 10/19/18 to return to [facility]. She was to followup with her primary care provider in the coming weeks. She was to resume her home medications as pervious to hospitalization and told to return to the hospital should she have any worsening symptoms. She was to resume her usual diet. She was to increase her activity as tolerated. MEDICATIONS AT DISCHARGE: 1. Tamiflu 75 mg twice daily for 4 days. No other medications were started. CONDITION AT DISCHARGE: Stable and improving. DISPOSITION: The patient was discharged back to [facility]. #[id number] [facility]
== END 2018-10-19 13:10 | disposition home or self-care (01) ==
LOC: ER 00:35 → MS 05:50
PROVIDERS: ADMIT Nurse Practitioner Family; ATTEND Nurse Practitioner Family
DX: J43.2 Centrilobular emphysema (principal); R07.2 Precordial pain; R50.81 Fever presenting with conditions classified elsewhere; E87.0 Hyperosmolality and hypernatremia; E87.8 Other disorders of electrolyte and fluid balance, not elsewhere classified; J96.12 Chronic respiratory failure with hypercapnia; E87.2 Acidosis; E86.0 Dehydration; G20 Parkinson's disease; K21.9 Gastro-esophageal reflux disease without esophagitis; Z99.81 Dependence on supplemental oxygen; Z79.51 Long term (current) use of inhaled steroids; Z79.82 Long term (current) use of aspirin; Z79.899 Other long term (current) drug therapy; Z88.8 Allergy status to other drugs, medicaments and biological substances; Z91.013 Allergy to seafood; Z87.891 Personal history of nicotine dependence
CPT/HCPCS: 96361; 96366; 96367; 96365; 96375; 96376; 96372; J0696 ×2; J1650; J2930; J7050 ×3; J0456; J7620 ×7; J7626 ×3; J8999 ×2; J7799 ×2; 80048; 82553; 80053; 87880; 36415 ×2; 81001; 85025; 82550; 85730; 85610; 87070; 84484 ×3; 83880; 71045; 71250; 94660; 94640 ×6; 82803; 36600; 82805; 94664; 99285; 93005 ×2; G0378; 87502

== ENCOUNTER 2019-01-02 08:47 | Emergency (ER) | payer MEDICARE ==
[2019-01-02 09:00] VITALS: TEMP 99.3
[2019-01-02] MEDS ORDERED: IPRATROPIUM/ALBUTEROL 3 ML VIAL NEB ONE (09:08)
[2019-01-02] MEDS ORDERED: methylPREDNISolone SODIUM SUC 125 MG/2 ML VIAL IV ONE (09:11)
[2019-01-02] MEDS ORDERED: SODIUM CHLORIDE 0.9% 500ML 500 ML IVS ONE (09:12)
--- NOTE | 2019-01-02 10:13 | RAD ---
CHEST 01/02/2019 CLINICAL HISTORY: Short of breath COMPARISON: 10/18/2018 TECHNIQUE: [AP] Chest. FINDINGS: Heart is normal in size. Minimal aortic atherosclerosis. Lungs are hyperinflated. Coarse lung markings are chronic. Possible trace right pleural fluid. Intact bones. IMPRESSION: 1. COPD. Possible trace right pleural fluid. Electronically signed by: Lorraine Bell DO 01/02/2019 10:10 AM CDT
[2019-01-02 10:20] VITALS: O2SAT 94
--- NOTE | 2019-01-02 10:56 | ED.PDOC ---
History of Present Illness - General Chief Complaint: Respiratory Problem Stated Complaint: low oxygen sats,difficulty breathing Time Seen by Provider: 01/02/19 08:57 Source: patient Exam Limitations: no limitations - History of Present Illness Comments: Kiesha Lang 73 y/o female with history of COPD came to ER with low oxygen saturation at [facility] presently on bipap and o2 /nc. Timing/Duration: just prior to arrival Cough Quality/Degree: moderate, dry cough Possible Cause: occasional episodes Improving Factors: nothing, eating Associated Symptoms: other - see hpi Respiratory Risk Factors: other - copd Allergies/Adverse Reactions: Allergies Iodine Allergy (Verified 10/10/18 16:25) Shellfish Allergy Allergy (Verified 10/10/18 16:25) Home Medications: Ambulatory Orders Albuterol Inhaler [Ventolin Hfa Inhaler] 2 puff INH Q4H PRN 10/10/18 Aspirin [Aspirin Regimen Low Dose/] 81 mg PO DAILY 10/10/18 B-Complex Vitamins [Vitamin B-Complex] 1 tab PO DAILY 10/10/18 Budesonide Nebs [Pulmicort Respules] 0.25 mg INH BID 10/10/18 Carbidopa-Levodopa [Rytary 36.25-145 mg] 3 cap PO BID 10/10/18 Cholecalciferol [Vitamin D-3] 5,000 unit PO DAILY 10/10/[address] [place] 0.02 % NEB Q4H 10/10/18 Levalbuterol HCl [Xopenex] 1.25 mg NEB Q4H 10/10/18 Meclizine HCl [Meclizine 25] 25 mg PO TID PRN 10/10/18 Megestrol Acetate 80 mg PO DAILY 10/10/18 Omeprazole Magnesium [Prilosec Otc] 20 mg PO DAILY PRN 10/10/18 Polyethylene Glycol 3350 [Miralax] 17 gm PO DAILY 10/10/18 Ropinirole Hydrochloride [Ropinirole HCl] 0.5 mg PO BID 10/10/18 Rotigotine [Neupro] 8 mg TD DAILY 10/10/18 Sertraline HCl [Zoloft] 25 mg PO .EVENING 10/10/18 Simethicone 80 mg PO QID PRN 10/10/18 Tramadol HCl 50 mg PO Q8H PRN 10/10/18 Trihexyphenidyl HCl [Trihexyphenidyl Hydrochlo] 2 mg PO DAILY 10/10/18 Umeclidinium-Vilanterol [Anoro Ellipta 62.5-25 Mcg/INH] 1 aer INH DAILY 10/10/18 Magnesium Hydroxide [Milk Of Magnesia] 30 ml PO DAILY PRN #30 ud 10/14/18 Bifidobacterium Infantis [Align] 4 mg PO BID 10/18/18 Levofloxacin [Levaquin] 250 mg PO DAILY 01/02/19 predniSONE 20 mg PO DAILY #7 tab 01/02/19 Review of Systems - Review of Systems Constitutional: States: no symptoms reported EENTM: States: no symptoms reported Respiratory: States: see HPI Cardiology: States: no symptoms reported Gastrointestinal/Abdominal: States: no symptoms reported Genitourinary: States: no symptoms reported Musculoskeletal: States: no symptoms reported Neurological: States: no symptoms reported All other Systems: Reviewed and Negative, No Change from Baseline Past Medical History (General) - Patient Medical History Hx Seizures: No Hx Stroke: No Hx Dementia: No Hx Asthma: No Hx of COPD: Yes Hx Cardiac Disorders: Yes - Tachycardia Hx Congestive Heart Failure: No Hx Pacemaker: Yes Hx Hypertension: No Hx Thyroid Disease: No Hx Diabetes: No Hx Gastroesophageal Reflux: Yes Hx Renal Disease: No Hx Cancer: No Hx of HIV: No Hx MRSA: No Surgical History: no surgical history - Vaccination History Hx Tetanus, Diphtheria Vaccination: No Hx Influenza Vaccination: No Hx Pneumococcal Vaccination: No - Social History Hx Tobacco Use: Yes Hx Alcohol Use: No Hx Substance Use: No Hx Physical Abuse: No Hx Emotional Abuse: No - Activities of Daily Living Jail/Assisted Living (if applicable):: [facility] Grooming Ability: Minimum Assistance Eating (Feeding) Ability: Minimum Assistance Toileting Ability: Minimum Assistance Family Medical History - Family History Mother Family History: Unknown Living Status: Hx Family Asthma: No Hx Family Congestive Heart Failure: No Hx Family Hypertension: Yes Hx Family Stroke: Yes Hx Cardiac Disease: No Hx Family Diabetes: No Hx Family Cancer: No Father Living Status: Unknown Physical Exam - Physical Exam General Appearance: Alert, Comfortable, No apparent distress Eye Exam: bilateral normal ENT Exam: normal ENT inspection, hearing grossly normal, TMs normal, pharynx normal Respiratory: lungs clear, no respiratory distress, no accessory muscle use, decreased breath sounds Cardiovascular/Chest: normal peripheral pulses, regular rate, rhythm, no murmur Gastrointestinal/Abdominal: soft, no organomegaly, no pulsatile mass Extremity: no pedal edema, no calf tenderness Neurologic: alert, oriented x 3 Skin Exam: normal color, warm/dry Lymphatic: no adenopathy Progress - Progress Progress: 01/02/19 11:00 01/02/19 09:08 BiPAP/CPAP Treatment DAILY SVN/Updraft Therapy .PRN 01/03/19 09:00 BiPAP Daily Laboratory Results - last 24 hr 01/02/19 01/02/19 09:08 09:11 WBC 9.1 RBC 3.73 L Hgb 11.7 L Hct 37.2 MCV 99.8 H MCH 31.5 H MCHC 31.5 L RDW 14.1 Plt Count 219 MPV 8.0 Absolute Neuts (auto) 6.70 Absolute Lymphs (auto) 1.30 Absolute Monos (auto) 0.90 H Absolute Eos (auto) 0.20 Absolute Basos (auto) 0.00 Neutrophils % 73.5 Lymphocytes % 14.3 L Monocytes % 9.6 H Eosinophils % 2.1 Basophils % 0.5 PT 9.5 INR 0.95 PTT (SP) 22.9 pCO2 84 H* pO2 58 L HCO3 51.4 ABG pH 7.400 ABG O2 Saturation 94.2 L ABG Base Excess 22.7 ABG Deoxyhemoglobin 5.6 H Oxyhemoglobin % 92.0 L Carboxyhemoglobin % 1.0 Methemoglobin % Sat 1.4 Calc Total Hemoglobin 10.4 L Sodium 141 Potassium 4.3 Chloride 84 L Carbon Dioxide 48 H Anion Gap 13.3 BUN 12 Creatinine 0.41 L BUN/Creatinine Ratio 29.3 H Random Glucose 83 Serum Osmolality 280.2 Calcium 10.1 Magnesium 2.0 Total Bilirubin 0.6 Direct Bilirubin 0.1 Indirect Bilirubin 0.5 AST 17 ALT < 8 L Alkaline Phosphatase 63 Creatine Kinase 34 CK-MB (CK-2) 2.0 CK-MB (CK-2) % Not Reportable Troponin I < 0.02 B-Natriuretic Peptide 84.8 Serum Total Protein 6.8 Albumin 3.9 01/02/19 11:42 Discuss all test results with daughter - Results/Orders Results/Orders: Laboratory Tests 03/16/19 03/16/19 09:08 09:11 WBC 9.1 RBC 3.73 L Hgb 11.7 L Hct 37.2 MCV 99.8 H MCH 31.5 H MCHC 31.5 L RDW 14.1 Plt Count 219 MPV 8.0 Absolute Neuts (auto) 6.70 Absolute Lymphs (auto) 1.30 Absolute Monos (auto) 0.90 H Absolute Eos (auto) 0.20 Absolute Basos (auto) 0.00 Neutrophils % 73.5 Lymphocytes % 14.3 L Monocytes % 9.6 H Eosinophils % 2.1 Basophils % 0.5 PT 9.5 INR 0.95 PTT (SP) 22.9 pCO2 84 H* pO2 58 L HCO3 51.4 ABG pH 7.400 ABG O2 Saturation 94.2 L ABG Base Excess 22.7 ABG Deoxyhemoglobin 5.6 H Oxyhemoglobin % 92.0 L Carboxyhemoglobin % 1.0 Methemoglobin % Sat 1.4 Calc Total Hemoglobin 10.4 L Sodium 141 Potassium 4.3 Chloride 84 L Carbon Dioxide 48 H Anion Gap 13.3 BUN 12 Creatinine 0.41 L BUN/Creatinine Ratio 29.3 H Random Glucose 83 Serum Osmolality 280.2 Calcium 10.1 Magnesium 2.0 Total Bilirubin 0.6 Direct Bilirubin 0.1 Indirect Bilirubin 0.5 AST 17 ALT < 8 L Alkaline Phosphatase 63 Creatine Kinase 34 CK-MB (CK-2) 2.0 CK-MB (CK-2) % Not Reportable Troponin I < 0.02 B-Natriuretic Peptide 84.8 Serum Total Protein 6.8 Albumin 3.9 - EKG/XRAY/CT XRAY: chest - copd changes Departure - Departure Clinical Impression: Chronic respiratory failure with hypercapnia, Supplemental oxygen dependent, History of Parkinson's disease COPD (chronic obstructive pulmonary disease) with emphysema Qualifiers: Emphysema type: unspecified Qualified Code(s): J43.9 - Emphysema, unspecified Time of Disposition: 11:45 Disposition: Discharge to SNF Condition: Fair Departure Forms: ED Discharge - Pt. Copy, Patient Portal Self Enrollment Instructions: Chronic Obstructive Pulmonary Disease (COPD), Including Emphysema, COPD Including Emphysema (DC), Oxygen Therapy, Adult (DC), Oxygen Therapy, Adult, Parkinson Disease (DC), Parkinson Disease Referrals: Matt Barclay MD [Primary Care Provider] - 1-2 Weeks Prescriptions: predniSONE 20 mg PO DAILY #7 tab Home Medications: Ambulatory Orders Albuterol Inhaler [Ventolin Hfa Inhaler] 2 puff INH Q4H PRN 10/10/18 Aspirin [Aspirin Regimen Low Dose/] 81 mg PO DAILY 10/10/18 B-Complex Vitamins [Vitamin B-Complex] 1 tab PO DAILY 10/10/18 Budesonide Nebs [Pulmicort Respules] 0.25 mg INH BID 10/10/18 Carbidopa-Levodopa [Rytary 36.25-145 mg] 3 cap PO BID 10/10/18 Cholecalciferol [Vitamin D-3] 5,000 unit PO DAILY 10/10/[address] [place] 0.02 % NEB Q4H 10/10/18 Levalbuterol HCl [Xopenex] 1.25 mg NEB Q4H 10/10/18 Meclizine HCl [Meclizine 25] 25 mg PO TID PRN 10/10/18 Megestrol Acetate 80 mg PO DAILY 10/10/18 Omeprazole Magnesium [Prilosec Otc] 20 mg PO DAILY PRN 10/10/18 Polyethylene Glycol 3350 [Miralax] 17 gm PO DAILY 10/10/18 Ropinirole Hydrochloride [Ropinirole HCl] 0.5 mg PO BID 10/10/18 Rotigotine [Neupro] 8 mg TD DAILY 10/10/18 Sertraline HCl [Zoloft] 25 mg PO .EVENING 10/10/18 Simethicone 80 mg PO QID PRN 10/10/18 Tramadol HCl 50 mg PO Q8H PRN 10/10/18 Trihexyphenidyl HCl [Trihexyphenidyl Hydrochlo] 2 mg PO DAILY 10/10/18 Umeclidinium-Vilanterol [Anoro Ellipta 62.5-25 Mcg/INH] 1 aer INH DAILY 10/10/18 Magnesium Hydroxide [Milk Of Magnesia] 30 ml PO DAILY PRN #30 ud 10/14/18 Bifidobacterium Infantis [Align] 4 mg PO BID 10/18/18 Levofloxacin [Levaquin] 250 mg PO DAILY 01/02/19 predniSONE 20 mg PO DAILY #7 tab 01/02/19 Additional Instructions: Continue with all home medications;Return to emergency room as needed
[2019-01-02 12:14] VITALS: BP 137/58
== END 2019-01-02 12:14 ==
LOC: ER 08:47
DX: J96.12 Chronic respiratory failure with hypercapnia (principal); J43.9 Emphysema, unspecified; G20 Parkinson's disease; K21.9 Gastro-esophageal reflux disease without esophagitis; Z99.81 Dependence on supplemental oxygen; Z95.0 Presence of cardiac pacemaker; Z87.891 Personal history of nicotine dependence; Z79.82 Long term (current) use of aspirin; Z79.899 Other long term (current) drug therapy
CPT/HCPCS: 36600; 71045; 80048; 80076; 82550; 82553; 82803; 82805; 83880; 84484; 85025; 85610; 85730; 94640; 94660; J2930; J7040; J7620

== ENCOUNTER → 2019-02-08 | Outpatient (CLI) | payer MEDICARE | LOC: GOCC 16:59 | PROVIDERS: ATTEND General Practice | DX: N39.0 Urinary tract infection, site not specified (principal) ==

== ENCOUNTER 2019-08-23 10:21 | Inpatient (IN) | payer MEDICARE ==
[2019-08-23] MEDS ORDERED: SODIUM CHLORIDE 0.9% (FLUSH) 10 ML SYG IV PRN ×3 (10:25→18:04)
[2019-08-23] MEDS ORDERED: methylPREDNISolone SODIUM SUC 125 MG/2 ML VIAL IV ONE (10:26)
[2019-08-23] MEDS ORDERED: methylPREDNISolone SODIUM SUC 125 MG/2 ML VIAL ONE (10:27)
[2019-08-23] MEDS ORDERED: IPRATROPIUM/ALBUTEROL 3 ML VIAL NEB ONE ×2 (10:29→11:08)
[2019-08-23] MEDS ORDERED: SODIUM CHLORIDE 0.9% IVS ONE (10:55)
[2019-08-23] MEDS ORDERED: CEFEPIME 2 GM in SODIUM CHL 0.9% 50ML MIN-BAG+ 50 ML IVPB ONE (10:58)
--- NOTE | 2019-08-23 11:00 | ED.PDOC ---
History of Present Illness - General Chief Complaint: Respiratory Problem Stated Complaint: shortness of breath Time Seen by Provider: 08/23/19 10:55 Source: patient, EMS notes reviewed, family - History of Present Illness Initial Comments: 74 yo F with PMH sig for COPD on 2L of oxygen at home, who presents for SOB. Per EMS pt was 80% on her home oxygen on their arrival, pt was given Xopenex en route. Pt is unsure how long her sx have been going on but state they worsened this morning. Pt denies any pain anywhere. She is awake, alert, but intermittently not answering questions. Hx of Parkinson. Pt granddaughter states she is sharp despite her dementia, but she gets stubborn and angry at times like now and will not answer questions. Granddaughter is concerned her NH has not been giving her breathing treatments as prescribed and it flared up her COPD. Per EMS paperwork, pt is DNI/DNR. History otherwise limited. Allergies/Adverse Reactions: Allergies Iodine Allergy (Verified 10/10/18 16:25) Shellfish Allergy Allergy (Verified 10/10/18 16:25) Home Medications: Ambulatory Orders RX: Albuterol Inhaler [Ventolin Hfa Inhaler] 2 puff INH Q4H PRN 10/10/18 RX: Aspirin [Aspirin Regimen Low Dose/] 81 mg PO DAILY 10/10/18 RX: B-Complex Vitamins [Vitamin B-Complex] 1 tab PO DAILY 10/10/18 RX: Budesonide Nebs [Pulmicort Respules] 0.25 mg INH BID 10/10/18 RX: Carbidopa-Levodopa [Rytary 36.25-145 mg] 3 cap PO BID 10/10/18 RX: Cholecalciferol [Vitamin D-3] 5,000 unit PO DAILY 10/10/18 RX: Ipratropium [place] 0.02 % NEB Q4H 10/10/18 RX: Levalbuterol HCl [Xopenex] 1.25 mg NEB Q4H 10/10/18 RX: Meclizine HCl [Meclizine 25] 25 mg PO TID PRN 10/10/18 RX: Megestrol Acetate 80 mg PO DAILY 10/10/18 RX: Omeprazole Magnesium [Prilosec Otc] 20 mg PO DAILY PRN 10/10/18 RX: Polyethylene Glycol 3350 [Miralax] 17 gm PO DAILY 10/10/18 RX: Ropinirole Hydrochloride [Ropinirole HCl] 0.5 mg PO BID 10/10/18 RX: Rotigotine [Neupro] 8 mg TD DAILY 10/10/18 RX: Sertraline HCl [Zoloft] 25 mg PO .EVENING 10/10/18 RX: Simethicone 80 mg PO QID PRN 10/10/18 RX: Tramadol HCl 50 mg PO Q8H PRN 10/10/18 RX: Trihexyphenidyl HCl [Trihexyphenidyl Hydrochlo] 2 mg PO DAILY 10/10/18 RX: Umeclidinium-Vilanterol [Anoro Ellipta 62.5-25 Mcg/INH] 1 aer INH DAILY 10/10/18 RX: Magnesium Hydroxide [Milk Of Magnesia] 30 ml PO DAILY PRN #30 ud 10/14/18 RX: Bifidobacterium Infantis [Align] 4 mg PO BID 10/18/18 Levofloxacin [Levaquin] 250 mg PO DAILY 01/02/19 RX: predniSONE 20 mg PO DAILY #7 tab 01/02/19 Review of Systems - Review of Systems Review of Systems: 08/23/19 12:15 Limited 2/ dementia, hypercapnia Past Medical History (General) - Patient Medical History Hx Seizures: No Hx Stroke: No Hx Dementia: No Hx Asthma: No Hx of COPD: Yes Hx Cardiac Disorders: Yes Hx Congestive Heart Failure: No Hx Pacemaker: No Hx Hypertension: No Hx Thyroid Disease: No Hx Diabetes: No Hx Gastroesophageal Reflux: No Hx Renal Disease: No Hx Cancer: No Hx of HIV: No Hx Hepatitis C: No Hx MRSA: No - Vaccination History Hx Tetanus, Diphtheria Vaccination: No Hx Influenza Vaccination: No Hx Pneumococcal Vaccination: No Immunizations Up to Date: No - Social History Hx Tobacco Use: No Hx Alcohol Use: Yes Hx Substance Use: No Hx Substance Use Treatment: No Hx Depression: No Hx Physical Abuse: No Hx Emotional Abuse: No Family Medical History - Family History Father Living Status: Unknown Mother Family History: Unknown Living Status: Hx Family Asthma: No Hx Family Congestive Heart Failure: No Hx Family Hypertension: Yes Hx Family Stroke: Yes Hx Cardiac Disease: No Hx Family Diabetes: No Hx Family Cancer: No Physical Exam - Physical Exam General Appearance: Alert, Frail Eye Exam: bilateral normal ENT Exam: normal ENT inspection Neck: non-tender, full range of motion, supple Respiratory: chest non-tender, respiratory distress - mild, other - Mild tachypnea, abd breathing, decreased breath sounds throughout, no wheezing Cardiovascular/Chest: normal peripheral pulses, regular rate, rhythm, no edema, no gallop, no JVD, no murmur Gastrointestinal/Abdominal: normal bowel sounds, non tender, soft, no organomegaly, no pulsatile mass, other - No distention, guarding, rebound Extremity: normal range of motion, non-tender, normal inspection, no pedal edema Neurologic: no motor/sensory deficits, alert Skin Exam: normal color, warm/dry, other - no cyanosis, rash, or diaphoresis Progress - Progress Progress: 08/23/19 10:59 Code sepsis activated. Starting on bipap based on ABG results, pt is retaining. Will give bolus slowly as at risk for further respiratory decompensation. 08/23/19 11:11 Pt not moving air well after duoneb, will give another, now on bipap. Will repeat ABG after 30 min on bipap. 08/23/19 11:45 Pt now with clear BS, moving air well, continues to do well on bipapa, will repeat ABG at this time. 08/23/19 12:42 Pt much improved, well appearing, more interactive, ABG significantly improved, discussed with pt and family need for admission, they agree with plan of care. Discussed with LASHAWN Morrow for admitting services, accepts for admission. Sepsis exam complete. 08/23/19 13:34 Pt is doing very well off of bipap, interactive answering questions, no tachypnea, saturating well on NC, denies pain or sx at this time. Will repeat ABG. Caterina Romero MD Emergency Medicine Physician Billing Number [id number] 08/23/19 13:36 - Results/Orders Results/Orders: 08/23/19 10:25 IV Care:Saline Lock per [facility] QSHIFT Telemetry .ONCE Sodium Chloride 0.9% (Flush) [Saline Flush Syringe] 10 ml IV PRN PRN EKG Stat Pulse Ox Stat 08/23/19 10:55 IV Care:Saline Lock per [facility] QSHIFT Telemetry .ONCE Sodium Chloride 0.9% (Flush) [Saline Flush Syringe] 10 ml IV PRN PRN Sodium Chloride 0.9% 1000ML [Ns 1000 ml] 1,700 ml IVS ONCE Pulse Ox Stat 08/23/19 11:13 BLOOD CULTURE Stat 08/23/19 11:29 BiPAP/CPAP Treatment DAILY 08/23/19 11:31 SVN [SVN/Updraft Therapy] .PRN 08/23/19 12:35 Arterial Blood Gas Stat 08/23/19 13:33 ABG [Arterial Blood Gas] Stat 08/23/19 15:00 LACTIC ACID Q2H 08/24/19 01:00 LACTIC ACID Q2H 08/24/19 03:00 LACTIC ACID Q2H 08/24/19 05:00 LACTIC ACID Q2H 08/24/19 07:00 LACTIC ACID Q2H 08/24/19 09:00 LACTIC ACID Q2H BiPAP Daily Laboratory Results - last 24 hr 08/23/19 08/23/19 08/23/19 10:30 10:30 10:30 WBC 7.5 RBC 4.47 Hgb 13.4 Hct 43.0 MCV 96.1 MCH 29.9 MCHC 31.1 L RDW 13.9 Plt Count 245 MPV 8.3 Absolute Neuts (auto) 4.90 Absolute Lymphs (auto) 1.80 Absolute Monos (auto) 0.60 Absolute Eos (auto) 0.20 Absolute Basos (auto) 0.10 Neutrophils % 65.3 Lymphocytes % 23.5 Monocytes % 7.6 Eosinophils % 2.5 Basophils % 1.1 PT INR PTT (SP) pCO2 pO2 HCO3 ABG pH ABG O2 Saturation ABG Base Excess ABG Deoxyhemoglobin Oxyhemoglobin % Carboxyhemoglobin % Methemoglobin % Sat Calc Total Hemoglobin Sodium 143 Potassium 4.5 Chloride 90 L Carbon Dioxide 42 H Anion Gap 15.5 BUN 15 Creatinine < 0.40 L BUN/Creatinine Ratio 37.0 H Random Glucose 130 H Serum Osmolality 287.6 Lactic Acid Calcium 10.2 Total Bilirubin 1.3 H AST 15 ALT < 8 L Alkaline Phosphatase 96 Troponin I 0.02 Serum Total Protein 7.0 Albumin 4.1 Globulin 2.9 Albumin/Globulin Ratio 1.4 Urine Color Urine Appearance Urine pH Ur Specific [place] Urine Protein Urine Glucose (UA) Urine Ketones Urine Blood Urine Nitrite Urine Bilirubin Urine Urobilinogen Ur Leukocyte Esterase Urine RBC Urine WBC Ur Epithelial Cells Urine Bacteria Urine Mucus 08/23/19 08/23/19 08/23/19 10:30 10:36 11:13 WBC RBC Hgb Hct MCV MCH MCHC RDW Plt Count MPV Absolute Neuts (auto) Absolute Lymphs (auto) Absolute Monos (auto) Absolute Eos (auto) Absolute Basos (auto) Neutrophils % Lymphocytes % Monocytes % Eosinophils % Basophils % PT 9.3 INR 0.93 PTT (SP) 21.4 L pCO2 102 H* pO2 82 L HCO3 46.4 ABG pH 7.280 L* ABG O2 Saturation 95.2 ABG Base Excess 15.2 ABG Deoxyhemoglobin 4.7 Oxyhemoglobin % 93.1 L Carboxyhemoglobin % 0.3 L Methemoglobin % Sat 1.9 H Calc Total Hemoglobin 13.2 Sodium Potassium Chloride Carbon Dioxide Anion Gap BUN Creatinine BUN/Creatinine Ratio Random Glucose Serum Osmolality Lactic Acid 1.1 Calcium Total Bilirubin AST ALT Alkaline Phosphatase Troponin I Serum Total Protein Albumin Globulin Albumin/Globulin Ratio Urine Color Urine Appearance Urine pH Ur Specific [place] Urine Protein Urine Glucose (UA) Urine Ketones Urine Blood Urine Nitrite Urine Bilirubin Urine Urobilinogen Ur Leukocyte Esterase Urine RBC Urine WBC Ur Epithelial Cells Urine Bacteria Urine Mucus 08/23/19 08/23/19 13:00 13:00 WBC RBC Hgb Hct MCV MCH MCHC RDW Plt Count MPV Absolute Neuts (auto) Absolute Lymphs (auto) Absolute Monos (auto) Absolute Eos (auto) Absolute Basos (auto) Neutrophils % Lymphocytes % Monocytes % Eosinophils % Basophils % PT INR PTT (SP) pCO2 pO2 HCO3 ABG pH ABG O2 Saturation ABG Base Excess ABG Deoxyhemoglobin Oxyhemoglobin % Carboxyhemoglobin % Methemoglobin % Sat Calc Total Hemoglobin Sodium Potassium Chloride Carbon Dioxide Anion Gap BUN Creatinine BUN/Creatinine Ratio Random Glucose Serum Osmolality Lactic Acid 1.0 Calcium Total Bilirubin AST ALT Alkaline Phosphatase Troponin I Serum Total Protein Albumin Globulin Albumin/Globulin Ratio Urine Color Yellow Urine Appearance Clear Urine pH 6.0 Ur Specific [place] 1.025 Urine Protein Trace Urine Glucose (UA) Negative Urine Ketones Trace Urine Blood Negative Urine Nitrite Negative Urine Bilirubin Negative Urine Urobilinogen 0.2 Ur Leukocyte Esterase Negative Urine RBC 0 Urine WBC 1-3 Ur Epithelial Cells 1-3 Urine Bacteria Rare Urine Mucus Large CXR: EXAM DESCRIPTION: Chest,1 View CLINICAL HISTORY: shortness of breath FINDINGS/ IMPRESSION: Comparison 01/02/2019 Normal cardiomediastinal silhouette. Under mildly hyperinflated, related to emphysema. No pulmonary edema, alveolar infiltrate or effusion No pneumothorax. Osteopenia. No acute bony abnormality Electronically signed by: Enrique Thompson MD 08/23/2019 11:00 AM [facility] - EKG/XRAY/CT EKG: Sinus, Tachy, nonspecific ST T wave Chg Comments: Limited by artifact CT Ordered: No CT Interpretation Call Back: No Departure - Departure Clinical Impression: COPD exacerbation, Acute respiratory failure with hypercapnia, Acute resp iratory distress Time of Disposition: 12:43 Disposition: Admit Patient Condition: Fair Referrals: Matt Barclay MD [Primary Care Provider] - 1-2 Weeks Home Medications: Ambulatory Orders RX: Albuterol Inhaler [Ventolin Hfa Inhaler] 2 puff INH Q4H PRN 10/10/18 RX: Aspirin [Aspirin Regimen Low Dose/] 81 mg PO DAILY 10/10/18 RX: B-Complex Vitamins [Vitamin B-Complex] 1 tab PO DAILY 10/10/18 RX: Budesonide Nebs [Pulmicort Respules] 0.25 mg INH BID 10/10/18 RX: Carbidopa-Levodopa [Rytary 36.25-145 mg] 3 cap PO BID 10/10/18 RX: Cholecalciferol [Vitamin D-3] 5,000 unit PO DAILY 10/10/18 RX: Ipratropium [place] 0.02 % NEB Q4H 10/10/18 RX: Levalbuterol HCl [Xopenex] 1.25 mg NEB Q4H 10/10/18 RX: Meclizine HCl [Meclizine 25] 25 mg PO TID PRN 10/10/18 RX: Megestrol Acetate 80 mg PO DAILY 10/10/18 RX: Omeprazole Magnesium [Prilosec Otc] 20 mg PO DAILY PRN 10/10/18 RX: Polyethylene Glycol 3350 [Miralax] 17 gm PO DAILY 10/10/18 RX: Ropinirole Hydrochloride [Ropinirole HCl] 0.5 mg PO BID 10/10/18 RX: Rotigotine [Neupro] 8 mg TD DAILY 10/10/18 RX: Sertraline HCl [Zoloft] 25 mg PO .EVENING 10/10/18 RX: Simethicone 80 mg PO QID PRN 10/10/18 RX: Tramadol HCl 50 mg PO Q8H PRN 10/10/18 RX: Trihexyphenidyl HCl [Trihexyphenidyl Hydrochlo] 2 mg PO DAILY 10/10/18 RX: Umeclidinium-Vilanterol [Anoro Ellipta 62.5-25 Mcg/INH] 1 aer INH DAILY 10/10/18 RX: Magnesium Hydroxide [Milk Of Magnesia] 30 ml PO DAILY PRN #30 ud 10/14/18 RX: Bifidobacterium Infantis [Align] 4 mg PO BID 10/18/18 Levofloxacin [Levaquin] 250 mg PO DAILY 01/02/19 RX: predniSONE 20 mg PO DAILY #7 tab 01/02/19
[2019-08-23] MEDS ORDERED: CEFEPIME 2 GM VIAL ONE (11:01)
[2019-08-23] MEDS ORDERED: SODIUM CHL 0.9% 50ML MIN-BAG+ 50 ML IVPB ONE ×2 (11:02→18:29)
--- NOTE | 2019-08-23 16:15 | HP ---
SUPERVISING PHYSICIAN: Emerson Patrick MD CHIEF COMPLAINT: Shortness of breath. HISTORY OF PRESENT ILLNESS: Ms. Lang is a 73-year-old female patient with a significant past medical history of chronic obstructive pulmonary disease requiring oxygen 2 liters at home. She came to the Emergency Room via EMS complaining of shortness of breath saturating 80%. She resides at a local care facility. She has a history of Parkinson's. There was some question of whether or not the patient had been getting her breathing treatments for chronic obstructive pulmonary disease and had been utilizing her BIPAP at night. On initial presentation to the Emergency Room, her vital signs showed that she was saturating 94% on 2.5 liters nasal cannula. Her blood gas analysis showed she was severely hypercapnic with a pCO2 of 102 pO2 82 with pH 7.28. She was started on BiPAP for her respiratory acidosis and improved with pH returning to 7.40, pCO2 decreasing to 72. Given the fact that she is DNR and Do Not Intubate, but requiring BiPAP, the patient is going to be admitted to [facility] for ongoing chronic obstructive pulmonary disease exacerbation and hypercapnia with respiratory acidosis due to respiratory failure requiring noninvasive ventilatory support. The patient is admitted in stable condition. PAST MEDICAL HISTORY: 1. Chronic obstructive pulmonary disease with frequent exacerbations requiring BiPAP. 2. Parkinson's disease. 3. Chronic emphysema with advanced central lobular emphysema with chronic O2 dependence. PAST SURGICAL HISTORY: No surgeries listed. HOME MEDICATIONS: Please see updated list of medications in the EMR that have been verified. ALLERGIES: IODINE, SHELLFISH. FAMILY HISTORY: Noncontributory. SOCIAL HISTORY: The patient resides at [facility]. She has been there since July of last year. She is . She was a heavy smoker, but quit previously and does not currently smoke. She does not use alcohol or illicit drugs. REVIEW OF SYSTEMS: CONSTITUTIONAL: Negative for any general malaise. HEENT: Negative for sore throats, earaches, nasal congestion. RESPIRATORY: As noted in history of present illness, chronic chronic obstructive pulmonary disease with advanced emphysema with chronic hypercapnia and O2 dependent as well as BiPAP. CARDIOVASCULAR: Negative for chest pain, peripheral edema, palpitations or syncopal episodes. GASTROINTESTINAL: Negative for nausea, vomiting, diarrhea, constipation or abdominal pain. NEUROLOGIC: As noted in history of present illness, lethargy, but improved with BiPAP. Negative for seizures, ataxia. He does have dementia. PHYSICAL EXAMINATION: VITAL SIGNS: On presentation to the Emergency Room, temperature 97.7, pulse 104, blood pressure 137/56, respirations 24 to 30, saturation 94% on nasal cannula at 2 liters at rest. GENERAL: The patient was alert after being placed on BiPAP. HEENT: Tympanic membranes clear bilaterally. Oropharynx is pink, moist without any lesions. NECK: Supple, nontender with full range of motion. RESPIRATORY: Lung sounds significantly decreased throughout. No wheezing or rhonchi. She was mildly tachypneic. CARDIOVASCULAR: Regular rate and rhythm without any appreciable murmurs, gallops, or rubs. ABDOMEN: Soft, nontender. Positive bowel sounds. No guarding, no rebound, no tenderness to palpation. EXTREMITIES: There is no edema. NEUROLOGIC: Once placed on BiPAP, the patient is alert. Cranial nerves II-XII are grossly intact. SKIN: Warm, pink and dry. LABORATORY: White count on admission 7,500 without a left shift. Hemoglobin 13.4, hematocrit 43.0. Coagulation studies showed normal PT, PTT. Blood gas analysis initially on presentation showed pH 7.28, pCO2 102, pO2 82, saturation 95% on 2 liter nasal cannula. After placement of BiPAP, pCO2 72, pO2 42 on room air with pH 7.44. Once on supplemental oxygen, pO2 was 96, pCO2 85, pH 7.3, O2 saturation 97% on 30% to 45% O2 on BiPAP. On room air, she was satting 79%. Chemistry on admission showed carbon dioxide 42, potassium and sodium normal, creatinine less than 0.4. Lactic acid 1.0. Troponin 0.02. Urinalysis was within normal limits. MICROBIOLOGY: Blood cultures are pending. RADIOLOGY: Chest x-ray on admission to the Emergency Room per radiologic interpretation showed no pulmonary edema, alveolar infiltrates or effusions. No pneumothorax. ASSESSMENT: 1. Acute respiratory acidosis secondary to hypercapnia, chronic obstructive pulmonary disease and emphysema. 2. Exacerbation of chronic obstructive pulmonary disease complicated by #1. 3. Parkinson's. 4. Dementia. PLAN: Ms. Lang is going to be admitted for respiratory failure with respiratory acidosis and chronic obstructive pulmonary disease exacerbation. Given her advanced emphysema with chronic obstructive pulmonary disease, she will be started on antibiotics with Rocephin and azithromycin as well as Solu- Medrol and continue steroids. We will utilize BiPAP as she improves and can back down to nasal cannula. She will be on DVT prophylaxis per protocol. She will be on regular diet as tolerated. We will resume her home medications once they have been updated and verified. She will be on aggressive pulmonary hygiene with DuoNeb treatments. I anticipate her stay to be at least 2 to 3 days until she can wean back down to 2 liter nasal cannula during the day at which time she can discharge to continue with outpatient treatment. Until then, we will continue to monitor and treat as needed. [id number] [facility]
[2019-08-23] MEDS ORDERED: ACETAMINOPHEN 325 MG TAB PO PRN (18:04)
[2019-08-23] MEDS ORDERED: MAGNESIUM HYDROXIDE 30 ML UD PO PRN (18:04)
[2019-08-23] MEDS ORDERED: ALBUTEROL SULFATE 2.5 MG/3 ML VIAL NEB PRN (18:04)
[2019-08-23] MEDS ORDERED: ONDANSETRON INJ 4 MG/2 ML VIAL IV PRN (18:04)
[2019-08-23] MEDS: IV SET AND CAP CHANGE INJ INJ SCH (18:29)
[2019-08-23] MEDS ORDERED: cefTRIAXone SODIUM 1 GM VIAL ONE (18:29)
[2019-08-23] MEDS ORDERED: AZITHROMYCIN IV 500 MG in SODIUM CHLORIDE 0.9% 250ML 250 ML IVPB SCH (18:30)
[2019-08-23] MEDS: methylPREDNISolone SODIUM SUC 40 MG/ML VIAL IV SCH ×2 (18:33→23:24)
[2019-08-23] MEDS: cefTRIAXone SODIUM 1 GM in SODIUM CHL 0.9% 50ML MIN-BAG+ 50 ML IVPB SCH (18:33)
[2019-08-23] MEDS ORDERED: SODIUM CHLORIDE 0.9% 250ML 250 ML ONE (19:12)
[2019-08-23] MEDS ORDERED: AZITHROMYCIN IV 500 MG VIAL IVPB ONE (19:13)
[2019-08-23] MEDS: AZITHROMYCIN IV 500 MG in SODIUM CHLORIDE 0.9% 250ML 250 ML IVPB SCH (19:29)
[2019-08-23] MEDS ORDERED: MORPHINE SULFATE INJ 10 MG/ML VIAL IV ONE (20:17)
[2019-08-23] MEDS: IPRATROPIUM/ALBUTEROL 3 ML VIAL INH SCH (20:47)
[2019-08-23] MEDS: CARBIDOPA LEVODOPA PO SCH (20:58)
[2019-08-23] MEDS: ENOXAPARIN SODIUM 40 MG/0.4 ML SYG SUBCU SCH (20:59)
[2019-08-23] MEDS ORDERED: ROPINIROLE HYDROCHLORIDE 0.5 MG PO SCH (21:00)
[2019-08-24] MEDS: BUDESONIDE NEBS 0.25 MG/2 ML INH INH SCH ×3 (01:55→18:49)
[2019-08-24] MEDS: methylPREDNISolone SODIUM SUC 40 MG/ML VIAL IV SCH ×4 (05:57→23:22)
[2019-08-24] MEDS: PANTOPRAZOLE SODIUM IV 40 MG VIAL IV SCH (05:57)
[2019-08-24] MEDS: IPRATROPIUM/ALBUTEROL 3 ML VIAL INH SCH ×4 (07:30→20:12)
--- NOTE | 2019-08-24 07:45 | RAD ---
EXAM DESCRIPTION: Chest,1 View CLINICAL HISTORY: Pneumonia FINDINGS/ IMPRESSION: Comparison 08/23/2019 Normal cardiomediastinal silhouette. Lungs are hyperinflated. Apical emphysema. No pulmonary edema, focal infiltrate or effusion Electronically signed by: Enrique Thompson MD 08/24/2019 7:44 AM [facility]
[2019-08-24] MEDS: DOCUSATE SODIUM 100 MG CAP PO SCH (10:08)
[2019-08-24] MEDS: MEGESTROL ACETATE 40 MG TAB PO SCH (10:08)
[2019-08-24] MEDS: ROTIGOTINE 8 MG TD SCH (10:46)
[2019-08-24] MEDS: CARBIDOPA LEVODOPA PO SCH ×2 (10:47→20:00)
[2019-08-24] MEDS: TRIHEXYPHENIDYL HCL 2 MG PO SCH (10:47)
[2019-08-24] MEDS ORDERED: SODIUM CHL 0.9% 50ML MIN-BAG+ 50 ML IVPB ONE (17:38)
[2019-08-24] MEDS ORDERED: cefTRIAXone SODIUM 1 GM VIAL ONE (17:38)
[2019-08-24] MEDS: cefTRIAXone SODIUM 1 GM in SODIUM CHL 0.9% 50ML MIN-BAG+ 50 ML IVPB SCH (18:33)
[2019-08-24] MEDS: SERTRALINE HCL 50 MG TAB PO SCH ×2 (19:05→20:01)
[2019-08-24] MEDS ORDERED: SODIUM CHLORIDE 0.9% 250ML 250 ML ONE (19:09)
[2019-08-24] MEDS ORDERED: AZITHROMYCIN IV 500 MG VIAL IVPB ONE (19:10)
[2019-08-24] MEDS: AZITHROMYCIN IV 500 MG in SODIUM CHLORIDE 0.9% 250ML 250 ML IVPB SCH (19:35)
[2019-08-24] MEDS: ENOXAPARIN SODIUM 40 MG/0.4 ML SYG SUBCU SCH (20:00)
[2019-08-25] MEDS: BUDESONIDE NEBS 0.25 MG/2 ML INH INH SCH ×3 (01:54→17:31)
[2019-08-25] MEDS: methylPREDNISolone SODIUM SUC 40 MG/ML VIAL IV SCH ×3 (06:03→20:47)
[2019-08-25] MEDS: PANTOPRAZOLE SODIUM IV 40 MG VIAL IV SCH (06:03)
[2019-08-25] MEDS: IPRATROPIUM/ALBUTEROL 3 ML VIAL INH SCH ×4 (08:12→20:20)
[2019-08-25] MEDS: MEGESTROL ACETATE 40 MG TAB PO SCH (08:30)
[2019-08-25] MEDS: DOCUSATE SODIUM 100 MG CAP PO SCH (08:31)
[2019-08-25] MEDS: CARBIDOPA LEVODOPA PO SCH ×2 (08:34→20:46)
[2019-08-25] MEDS: TRIHEXYPHENIDYL HCL 2 MG PO SCH (08:35)
[2019-08-25] MEDS: ROTIGOTINE 8 MG TD SCH (08:36)
--- NOTE | 2019-08-25 08:36 | PN ---
SUPERVISING PHYSICIAN: Emerson Patrick MD DATE: 08/24/19 SUBJECTIVE: The patient has been on BiPAP for most of the night. She was able to come off this morning for meals. She does become a little more sleepy once off BiPAP, but is interacting. She has had no further complaints of chest pain. She is afebrile. OBJECTIVE: VITAL SIGNS: Temperature 97.2. Pulse 100. Blood pressure 104/56. Respirations 22 to 26. On BiPAP, she is satting 96%. On nasal cannula at 2 liters, saturation is 97%. I&Os with negative balance. Weight 40.7 kg. GENERAL: The patient is sleepy, but is easily alerted to verbal stimulus and interacts appropriately. She appears to be in no acute distress. CHEST: Lung sounds are diminished towards the bases, but no obvious rales, rhonchi or wheezing today. HEART: Regular rate and rhythm. ABDOMEN: Soft, nontender. Positive bowel sounds. EXTREMITIES: No edema. NEUROLOGIC: She is alert to herself and location. Per her family, she appears to be back to baseline mental status. LABORATORY: White count 4,700, hemoglobin 11, hematocrit 35.3, platelet count 198,000. Differential shows a left shift. Blood gas analysis yesterday after being on BiPAP showed pH 7.33, pO2 96, CO2 85 and I believe that was on 40% FIO2, saturation 97%. Her chemistries showed elevated CO2, but a little improved from yesterday. BUN 20, creatinine less than 0.4. Calcium 9.2. MICROBIOLOGY: Blood cultures remain negative at 24 hours. RADIOLOGY: Chest x-ray this morning per radiologic interpretation showed normal cardiomediastinal silhouette. Lungs are hyperinflated. Apical emphysema. No pulmonary edema, focal infiltrate or effusion. ASSESSMENT: 1. Acute respiratory acidosis secondary to hypercapnia, chronic obstructive pulmonary disease and emphysema, BiPAP dependent at night. 2. Exacerbation of chronic obstructive pulmonary disease complicated by #1. 3. Parkinson's. 4. Dementia. PLAN: We will continue aggressive pulmonary hygiene, BiPAP at night. If possible, we will titrate as needed. She does remain on antibiotic coverage with azithromycin and Rocephin. We have continued Solu-Medrol for an additional 24 hours at 40 mg q.6h. We will start titrating those tomorrow. We will hopefully be able to discharge in the next 24 to 48 hours. Until then, we will continue to monitor and treat as needed. [id number]
--- NOTE | 2019-08-25 14:09 | PN ---
SUPERVISING PHYSICIAN: Emerson Patrick MD DATE: 08/25/19 SUBJECTIVE: The patient states she is breathing fairly well at this time. She sleeps intermittently, not solidly, but that is nothing out of the ordinary for her. OBJECTIVE: VITAL SIGNS: Blood pressure 106/68. Heart rate 90. Respiratory rate 20. Temperature 98.3. Oxygen saturation 96%. GENERAL: Ms. Lang is a 74-year-old female in no active distress currently. NEUROLOGIC: Alert and oriented. LUNGS: Diminished bases, but no active wheezing or rhonchi at this time. CARDIOVASCULAR: Regular rate and rhythm. Normal S1, S2. ABDOMEN: Soft. Positive bowel sounds. EXTREMITIES: Lower extremities with no significant edema. LABORATORY: Labs and films were not done today, but were done yesterday and I reviewed those as well. ASSESSMENT: 1. Acute on chronic respiratory failure. 2. Chronic obstructive pulmonary disease exacerbation. 3. Parkinson's. 4. Dementia. PLAN: The patient's respiratory failure acutely has seemed to improve. She does still require BiPAP at night, but that is a chronic issue. She is alert and oriented and breathing fairly at her baseline at this time. I will reduce her steroids and rechecks labs as well as x-ray tomorrow. I anticipate discharge back to the nursing facility in the next 24 to 48 hours. #[id number] [facility]
[2019-08-25] MEDS ORDERED: SODIUM CHL 0.9% 50ML MIN-BAG+ 50 ML IVPB ONE (16:39)
[2019-08-25] MEDS ORDERED: cefTRIAXone SODIUM 1 GM VIAL ONE (16:39)
[2019-08-25] MEDS: cefTRIAXone SODIUM 1 GM in SODIUM CHL 0.9% 50ML MIN-BAG+ 50 ML IVPB SCH (17:36)
[2019-08-25] MEDS ORDERED: SODIUM CHLORIDE 0.9% 250ML 250 ML ONE (19:01)
[2019-08-25] MEDS ORDERED: AZITHROMYCIN IV 500 MG VIAL IVPB ONE (19:01)
[2019-08-25] MEDS: AZITHROMYCIN IV 500 MG in SODIUM CHLORIDE 0.9% 250ML 250 ML IVPB SCH (19:14)
[2019-08-25] MEDS: ENOXAPARIN SODIUM 40 MG/0.4 ML SYG SUBCU SCH (20:47)
[2019-08-25] MEDS: SERTRALINE HCL 50 MG TAB PO SCH (20:47)
[2019-08-26] MEDS: BUDESONIDE NEBS 0.25 MG/2 ML INH INH SCH ×3 (02:00→17:00)
[2019-08-26] MEDS: PANTOPRAZOLE SODIUM IV 40 MG VIAL IV SCH (06:18)
[2019-08-26] MEDS: IPRATROPIUM/ALBUTEROL 3 ML VIAL INH SCH ×4 (08:23→19:58)
[2019-08-26] MEDS: MEGESTROL ACETATE 40 MG TAB PO SCH (10:30)
[2019-08-26] MEDS: methylPREDNISolone SODIUM SUC 40 MG/ML VIAL IV SCH ×2 (10:31→21:05)
[2019-08-26] MEDS: DOCUSATE SODIUM 100 MG CAP PO SCH (10:31)
[2019-08-26] MEDS: TRIHEXYPHENIDYL HCL 2 MG PO SCH (10:33)
[2019-08-26] MEDS: ROTIGOTINE 8 MG TD SCH (10:34)
[2019-08-26] MEDS: CARBIDOPA LEVODOPA PO SCH ×5 (13:06→21:04)
--- NOTE | 2019-08-26 13:52 | PN ---
SUPERVISING PHYSICIAN: Emerson aPtrick MD DATE: 08/26/19 SUBJECTIVE: The patient is really no different than she was yesterday. She states she does not really sleep very much. Respiratory therapy states once she is off the BiPAP, she seems a little bit more short of breath. OBJECTIVE: VITAL SIGNS: Blood pressure 96/54. Heart rate 86. Respiratory rate 20. Temperature 98.0. Oxygen saturation 96%. GENERAL: Ms. Lang is a 74-year-old female who is ill in appearance, but in no active distress currently. NEUROLOGIC: Alert and oriented. LUNGS: Diminished primarily in the bases, but otherwise clear to auscultation bilaterally. CARDIOVASCULAR: Regular rate and rhythm. Normal S1, S2. ABDOMEN: Soft. Positive bowel sounds. EXTREMITIES: Lower extremities with no edema. ASSESSMENT: 1. Acute on chronic respiratory failure. 2. Chronic obstructive pulmonary disease exacerbation. 3. Parkinson's. 4. Dementia. PLAN: At this point, I did reduce her steroids. There has been no significant change in her status, no regression in her acute exacerbation. However, I feel like her disease process is progressing. I did discuss with her daughter regarding this and she agrees that she has been going downhill recently. We discussed potential hospice and she does agree to have possibly [facility]. Therefore, I will contact funeral workers to try to get this set up. #[id number] [facility]
[2019-08-26] MEDS ORDERED: SODIUM CHL 0.9% 50ML MIN-BAG+ 50 ML IVPB ONE (18:06)
[2019-08-26] MEDS ORDERED: SODIUM CHLORIDE 0.9% 250ML 250 ML ONE (18:06)
[2019-08-26] MEDS ORDERED: AZITHROMYCIN IV 500 MG VIAL IVPB ONE (18:07)
[2019-08-26] MEDS ORDERED: cefTRIAXone SODIUM 1 GM VIAL ONE (18:07)
[2019-08-26] MEDS: cefTRIAXone SODIUM 1 GM in SODIUM CHL 0.9% 50ML MIN-BAG+ 50 ML IVPB SCH (18:16)
[2019-08-26] MEDS: AZITHROMYCIN IV 500 MG in SODIUM CHLORIDE 0.9% 250ML 250 ML IVPB SCH (19:16)
[2019-08-26] MEDS: IV SET AND CAP CHANGE INJ INJ SCH (19:22)
[2019-08-26] MEDS: SERTRALINE HCL 50 MG TAB PO SCH (21:05)
[2019-08-26] MEDS: ENOXAPARIN SODIUM 40 MG/0.4 ML SYG SUBCU SCH (21:05)
[2019-08-27] MEDS: BUDESONIDE NEBS 0.25 MG/2 ML INH INH SCH ×2 (02:00→08:55)
[2019-08-27] MEDS: PANTOPRAZOLE SODIUM IV 40 MG VIAL IV SCH (06:32)
[2019-08-27] MEDS: DOCUSATE SODIUM 100 MG CAP PO SCH (08:15)
[2019-08-27] MEDS: methylPREDNISolone SODIUM SUC 40 MG/ML VIAL IV SCH (08:15)
[2019-08-27] MEDS: MEGESTROL ACETATE 40 MG TAB PO SCH (08:16)
[2019-08-27] MEDS: CARBIDOPA LEVODOPA PO SCH ×2 (08:18→08:19)
[2019-08-27] MEDS: TRIHEXYPHENIDYL HCL 2 MG PO SCH (08:20)
[2019-08-27] MEDS: ROTIGOTINE 8 MG TD SCH (08:20)
[2019-08-27] MEDS: IPRATROPIUM/ALBUTEROL 3 ML VIAL INH SCH ×2 (08:55→13:17)
--- NOTE | 2019-08-27 10:29 | DS ---
SUPERVISING PHYSICIAN: Emerson Patrick MD ADMISSION DIAGNOSIS: 1. Acute on chronic respiratory failure secondary hypercapnia and chronic obstructive pulmonary disease exacerbation. 2. Chronic obstructive pulmonary disease exacerbation. 3. Parkinson's disease. 4. Dementia. DISCHARGE DIAGNOSIS: 1. Acute on chronic respiratory failure. 2. Chronic obstructive pulmonary disease exacerbation. 3. Parkinson's disease. 4. Dementia. HOSPITAL COURSE: This is a 73-year-old female with a history of advanced chronic obstructive pulmonary disease who is O2 dependent on a chronic basis. She resides at [facility] and was noted to have low O2 saturations. She was seen in the Emergency Room and noted to have a respiratory acidosis and therefore was placed on BiPAP. She is a DNR, but required BiPAP and was admitted to [facility]. Her ABG in the Emergency Room showed pH 7.2, pCO2 102, pO2 82. She was placed on steroids as well as nebulizers. Her pCO2 did go down on subcuticular ABG. Throughout her stay, she required intermittent BiPAP, primarily whenever they would take the BiPAP off, she would get a little bit short of breath, but towards the end, she was able to maintain for a longer period of time. She slowly, but stepwise improved to her baseline throughout the admission. She requires BiPAP at night, but that is not anything different than she uses at the [facility], and nebulizers every 4 hours. I reduced her steroids and she is on oral dosing with a tapering dose ordered. I did discuss with her daughter regarding her advanced disease. She states she was on hospice at one time, but it was discontinued. I discussed with her once again and they are interested in pursuing that, however, given some insurance issues, she is going to go back to [facility] today with previous care. I have written for a tapering dose of steroids and continuing antibiotics for the next 7 days. Additionally, I have written instruction to change her Xopenex to DuoNeb. She is going to utilize BiPAP at night there as well. Her activity will be as tolerated. She is going to followup with her primary care physician, Dr. Barclay, in one to two weeks. They are still going to pursue hospice if she fails to get any stronger. All other medications have been resumed per the medication reconciliation record. #[id number] [facility]
[2019-08-27 12:09] VITALS: BP 123/66; TEMP 98.4
[2019-08-27 14:20] VITALS: O2SAT 98
== END 2019-08-27 15:00 | disposition home or self-care (01) | DRG 189 ==
LOC: ER 10:21 → MS 16:14 → INTOOBSV 16:14 → UNDOADMOB 16:14 → OBSVTOIN 16:14 → UNDOADMOB 16:15 → MS 16:15 → INTOOBSV 08-26 21:42 → UNDOADMOB 08-26 21:42 → OBSVTOIN 08-26 21:42 → UNDODISIN 08-27 15:00
PROVIDERS: ADMIT Nurse Practitioner; ATTEND Nurse Practitioner
DX: J96.22 Acute and chronic respiratory failure with hypercapnia (principal); J43.9 Emphysema, unspecified; G20 Parkinson's disease; F02.80 Dementia in other diseases classified elsewhere, unspecified severity, without behavioral disturbance, psychotic disturbance, mood disturbance, and anxiety; Z66 Do not resuscitate; Z99.81 Dependence on supplemental oxygen; Z91.048 Other nonmedicinal substance allergy status; Z87.891 Personal history of nicotine dependence; Z79.82 Long term (current) use of aspirin; Z79.52 Long term (current) use of systemic steroids; Z79.891 Long term (current) use of opiate analgesic; Z79.899 Other long term (current) drug therapy